=== PATIENT | female | born 1985 | race Caucasian/White ===

== ENCOUNTER 2024-07-13 22:03 | Observation (INO) ==
[2024-07-13 23:40] LABS: Basophils # (auto) 0.05 K/uL (0.00-0.20); Basophils % (auto) 0.5 %; Eosinophils % (auto) 2.1 %; Hematocrit (blood only) 33.9 % (37.0-47.0); Hemoglobin 11.3 g/dl (12.0-16.0); Immature Granulocytes # (auto) 0.04 K/uL (0.01-0.20); Immature Granulocytes % (auto) 0.4 %; Lymphocytes # (auto) 2.58 K/uL (1.20-3.40); Lymphocytes % (auto) 27.3 %; Mean Corpuscular Hgb Conc 33.3 g/dL (32.0-36.0); Mean Corpuscular Volume 89.9 fL (80.0-100.0); Mean Platelet Volume 9.6 fL (9.4-12.4); Monocytes # (auto) 0.51 K/uL (0.11-0.59); Monocytes % (auto) 5.4 %; Neutrophils # (auto) 6.06 K/uL (1.40-6.50); Neutrophils % (auto) 64.3 %; Platelet Count 398 K/uL (130-400); RDW Coefficient of Variation 12.8 % (11.5-14.5); RDW Standard Deviation 42.4 fL (36.4-46.3); Red Blood Count 3.77 M/uL (4.20-5.40); White Blood Count 9.44 K/ul (4.8-10.8)
[2024-07-13 23:42] LABS: Creatinine Urine Random 158.1 mg/dl; Protein Creatinine Ratio Urine 0.2 (0-0.2); Total Protein Urine Random 30.4 mg/dl (0-11.9)
[2024-07-13 23:58] LABS: Albumin Level 3.1 gm/dl (3.4-5.0); BUN Creatinine Ratio 12.9 (10-20); Bilirubin,Total 0.2 mg/dl (0.2-1.0); Calcium 8.3 mg/dl (8.6-10.3); Potassium 3.7 mmol/L (3.5-5.1); Total Protein 6.1 gm/dl (6.0-8.3)
--- NOTE | 2024-07-14 00:15 | History & Physical Report ---
Date of Service July 14, 2024 Assessment & Plan (1) Gestational [-induced] hypertension without significant prot einuria, complicating childbirth: Plan: patient is a 38-year-old -0-3-0 at 35 weeks and 6 days of gestation with a borderline elevated blood pressures, no proteinuria, bilateral lower extremity edema, redness, warmth, Vital signs stable afebrile, heart rate reassuring, No signs or symptoms of labor, Labs within normal limits, Abnormal lower extremities with significant edema, redness, increase in temperature, Plan to monitor, observe, bilateral Doppler ultrasound of lower extremities and consult medicine/hospitalist for further recommendations, All questions were answered. (2) Bilateral lower extremity edema: (3) Redness and swelling of lower leg: (4) Warmness of skin: History of Present Illness Primary Care Provider: Navneet Alvarez Patient is a 38-year-old -0-3-0 at 35 weeks and 6 days of gestation who was in the office yesterday afternoon when her blood pressure was borderline high and 142/88 and her urine dip showed 1+ protein she also had lower extremity edema and complained of right upper quadrant pain. She was recommended to come to labor and delivery directly from office. She went home and then decided to come tonight with her partner. She states her legs were swollen slightly initially and then got worse for the last week and then got red and hot for the last 2 days. They are tense and warm to touch. She was complaining of epigastric and right upper quadrant pain but she thought it was from tight small brown. She took her for blood for 2 days and is better now. She denies headaches, change in vision, nausea vomiting. She denies contractions, leakage of fluid, vaginal bleeding. She reports good movements. Her has been complicated by, 1) AMA, 2) transfer care in third trimester from [place], 3) Smoker, tobacco use Allergies Allergy/AdvReac Type Severity Reaction Status Date / Time Penicillins Allergy Unknown hives. Verified 07/13/24 22:28 Home Medications Medication Instructions Recorded Confirmed Type iron,carbonyl 65 mg-vitamin C 125 1 tab PO BID 07/13/24 07/13/24 History mg tablet,delayed release (Vitron-C) vits no.124-ferrous fum 1 tab PO DAILY 07/13/24 07/13/24 History 27 mg iron-folic acid 800 mcg tablet ( Vitamin) Patient History Medical History Endometriosis determined by laparoscopy Tachycardia Smoker 8-10 cigarettes per day History of opioid abuse 8 years ago.. patient states "I took anything" ADHD Endometriosis Surgical History H/O cone biopsy of cervix Social History Smoking Status: Current every day smoker Tobacco Type: Cigarettes Cigarettes Per Day: 6-10; Hx Alcohol Use: No Hx Substance Use: No Preferred Language: Nauruan Communication Ability: Effective Consulting Group Analyst Required: No Beliefs That Will Affect Care: None marital status: Single Current Living Situation: Parent Current Living Situation Comment: father Other Information That Helps Us Care for You: No Assistive Devices: None OB History 3 early spontaneous miscarriages Review of Systems as per Subjective / HPI Physical Exam Constitutional: WD/WN, vitals as above well developed, well nourished and comfortable Gastrointestinal (Abdomen): normal bowel sounds, soft, nontender, no hepatosplenomegaly ( gravid, no epigastric/right upper quadrant tenderness) Musculoskeletal: Extremities: + lower extremity abnormal to inspection ( bilateral redness, 3+ pitting edema, tightness, warm to touch) and + lower leg abnormality Genitourinary: OB Exam Monitor Tracing: + external uterine monitor used and + category I Results & Data Vital Signs (Past 12 Hours) Vital Signs Temp Pulse Resp BP 07/13/24 23:40 89 139/78 07/13/24 23:11 98 H 139/93 07/13/24 22:55 104 H 136/95 07/13/24 22:40 93 H 156/96 H 07/13/24 22:30 36.6 C 18 07/13/24 22:24 93 H 159/93 H Laboratory Results Lab Results 07/13/24 07/13/24 Range/Units 23:00 23:27 WBC 9.44 (4.8-10.8) K/ul RBC 3.77 L (4.20-5.40) M/uL Hgb 11.3 L (12.0-16.0) g/dl Hct 33.9 L (37.0-47.0) % MCV 89.9 (80.0-100.0) fL MCH 30.0 (25.0-34.0) pg MCHC 33.3 (32.0-36.0) g/dL RDW Std Deviation 42.4 (36.4-46.3) fL RDW Coeff of Corby 12.8 (11.5-14.5) % Plt Count 398 (130-400) K/uL MPV 9.6 (9.4-12.4) fL Immature Gran % (Auto) 0.4 % Neut % (Auto) 64.3 % Lymph % (Auto) 27.3 % [place] % (Auto) 5.4 % Eos % (Auto) 2.1 % Baso % (Auto) 0.5 % Neut # (Auto) 6.06 (1.40-6.50) K/uL Lymph # (Auto) 2.58 (1.20-3.40) K/uL [place] # (Auto) 0.51 (0.11-0.59) K/uL Eos # (Auto) 0.20 (0.00-0.50) K/uL Baso # (Auto) 0.05 (0.00-0.20) K/uL Immature Gran # (Auto) 0.04 (0.01-0.20) K/uL Sodium 137 (136-145) mmol/L Potassium 3.7 (3.5-5.1) mmol/L Chloride 107 (98-107) mmol/L Carbon Dioxide 23 (21-32) mmol/L Anion Gap 7 (3-11) BUN 8 (6-23) mg/dl Creatinine 0.62 (0.6-1.2) mg/dl Est Cr Clr Drug Dosing 114.0 ml/min eGFR 118.29 BUN/Creatinine Ratio 12.9 (10-20) Glucose 91 (70-99(Fasting)) mg/dl Calcium 8.3 L (8.6-10.3) mg/dl Total Bilirubin 0.2 (0.2-1.0) mg/dl AST 15 (13-39) U/L ALT 11 (7-52) U/L Alkaline Phosphatase 171 H (34-104) U/L Total Protein 6.1 (6.0-8.3) gm/dl Albumin 3.1 L (3.4-5.0) gm/dl Globulin 3.0 (2.5-4.0) gm/dl Albumin/Globulin Ratio 1.0 (0.9-2) Ur Random Creatinine 158.1 mg/dl U Random Total Protein 30.4 H (0-11.9) mg/dl Protein/Creatinin Ratio 0.2 (0-0.2)
--- NOTE | 2024-07-14 00:27 | Hospitalist Consultation ---
Date of Consultation July 14, 2024 Assessment & Plan (1) Bilateral lower extremity edema: Final Assessment and Recommendations as follows : Bilateral LE cellulitis Rule out DVT No sepsis for now ADHD, stable off maintenance medications Anemia of history of opioid abuse as per records ongoing tobacco abuse IV ceftriaxone followed by Keflex course. Consider clindamycin for MRSA coverage if no improvement. Follow LE venous Dopplers result Patient has been counseled to stop smoking. DVT prophylaxis. SCDs if no clot on venous Dopplers study. Thank you very much for this consultation. Dr. Medina will follow patient's progress. Text document was generated using [employer] voice recognition software. It may contain grammatical or spelling errors. Kindly contact undersigned for clarification of any documentation item in question. History of Present Illness Reason for Consultation: Bilateral leg swelling Requesting Physician: Dr. Ferreira Attending Physician: Tiarra Ferreira MD History of Present Illness PCP : Dr. Alvarez History obtained from patient, family, and records. Medical history significant for ADHD, endometriosis, cervical dysplasia, IBS, chronic anemia (baseline hemoglobin of 11), history of opioid abuse as per records, ongoing tobacco abuse. Patient currently at 36 weeks AOG. Last week, patient noted sudden onset bilateral leg swelling without chest pain or SOB. Subsequent redness noted over the last few days. No fever, no chills, no recollection of trauma. Patient seen at [facility] OB office today. SBP 140s. Patient directed to [facility] labor and delivery unit for evaluation. 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 Verified 07/13/24 22:28 Home Medications Medication Instructions Recorded Confirmed Type iron,carbonyl 65 mg-vitamin C 125 1 tab PO BID 07/13/24 07/13/24 History mg tablet,delayed release (Vitron-C) vits no.124-ferrous fum 1 tab PO DAILY 07/13/24 07/13/24 History 27 mg iron-folic acid 800 mcg tablet ( Vitamin) cephalexin 500 mg capsule 500 mg PO TID 7 days #21 caps 07/14/24 Rx Patient History Medical History Endometriosis determined by laparoscopy Tachycardia Smoker 8-10 cigarettes per day History of opioid abuse 8 years ago.. patient states "I took anything" ADHD Endometriosis Surgical History H/O cone biopsy of cervix Social History Smoking Status: Current every day smoker Tobacco Type: Cigarettes Cigarettes Per Day: 6-10; Hx Alcohol Use: No Hx Substance Use: No Preferred Language: Romansh Communication Ability: Effective [employer] Brm Developer Required: No Beliefs That Will Affect Care: None marital status: Single Current Living Situation: Parent Current Living Situation Comment: father Other Information That Helps Us Care for You: No Feels Safe at Home: Yes Assistive Devices: None Review of Systems Review of Systems: As per HPI, all other systems reviewed and negative Physical Exam Physical Exam: GENERAL: Comfortable, pleasant, no respiratory distress SKIN: Pallor, warm HEENT: Pale palpebral conjunctivae, no ptosis, dry buccal mucosa NECK : Supple, no tenderness CHEST : CTA, no tenderness HEART : RRR, no obvious murmurs ABDOMEN: Globular abdomen, nontender EXTREMITIES : Bilateral LE erythema with minimal, no other conspicuous deformities noted NEUROLOGIC : Coherent, no facial asymmetry, no other gross focality Results & Data Results & Data Vital Signs (Past 12 Hours) Vital Signs Temp Pulse Resp BP 07/13/24 23:40 89 139/78 07/13/24 23:11 98 H 139/93 07/13/24 22:55 104 H 136/95 07/13/24 22:40 93 H 156/96 H 07/13/24 22:30 36.6 C 18 07/13/24 22:24 93 H 159/93 H Laboratory Results Laboratory Results WBC 9.44 K/ul (4.8-10.8) 07/13/24 23:27 RBC 3.77 M/uL (4.20-5.40) L 07/13/24 23:27 Hgb 11.3 g/dl (12.0-16.0) L 07/13/24 23:27 Hct 33.9 % (37.0-47.0) L 07/13/24: MCV 89.9 fL (80.0-100.0) 07/13/24: MCH 30.0 pg (25.0-34.0) 07/13/24: MCHC 33.3 g/dL (32.0-36.0) 07/13/24: RDW Std Deviation 42.4 fL (36.4-46.3) 07/13/24 RDW Coeff of Corby 12.8 % (11.5-14.5) 07/13/24: Plt Count 398 K/uL (130-400) 07/13/24: MPV 9.6 fL (9.4-12.4) 07/13/24: Immature Gran % (Auto) 0.4 % 07/13/24: Neut % (Auto) 64.3 % 07/13/24: Lymph % (Auto) 27.3 % 07/13/24: [place] % (Auto) 5.4 % 07/13/24: Eos % (Auto) 2.1 % 07/13/24: Baso % (Auto) 0.5 % 07/13/24 Neut # (Auto) 6.06 K/uL (1.40-6.50) 07/13/24: Lymph # (Auto) 2.58 K/uL (1.20-3.40) 07/13/24: [place] # (Auto) 0.51 K/uL (0.11-0.59) 07/13/24: Eos # (Auto) 0.20 K/uL (0.00-0.50) 07/13/24: Baso # (Auto) 0.05 K/uL (0.00-0.20) 07/13/24: Immature Gran # (Auto) 0.04 K/uL (0.01-0.20) 07/13/24 23: Sodium 137 mmol/L (136-145) 07/13/24: Potassium 3.7 mmol/L (3.5-5.1) 07/13/24: Chloride 107 mmol/L (98-107) 07/13/24 23:27 Carbon Dioxide 23 mmol/L (21-32) 07/13/24 23:27 Anion Gap 7 (3-11) 07/13/24 23:27 BUN 8 mg/dl (6-23) 07/13/24 23:27 Creatinine 0.62 mg/dl (0.6-1.2) 07/13/24 23:27 Est Cr Clr Drug Dosing 114.0 ml/min 07/13/24 23:27 eGFR 118.29 07/13/24 23:27 BUN/Creatinine Ratio 12.9 (10-20) 07/13/24 23:27 Glucose 91 mg/dl (70-99(Fasting)) 07/13/24 23: Calcium 8.3 mg/dl (8.6-10.3) L 07/13/24 23: Total Bilirubin 0.2 mg/dl (0.2-1.0) 07/13/24 23:27 AST 15 U/L (13-39) 07/13/24 23:27 ALT 11 U/L (7-52) 07/13/24 23:27 Alkaline Phosphatase 171 U/L (34-104) H 07/13/24 23:27 Total Protein 6.1 gm/dl (6.0-8.3) 07/13/24 23:27 Albumin 3.1 gm/dl (3.4-5.0) L 07/13/24 23:27 Globulin 3.0 gm/dl (2.5-4.0) 07/13/24 23:27 Albumin/Globulin Ratio 1.0 (0.9-2) 07/13/24 23:27 Ur Random Creatinine 158.1 mg/dl 07/13/24 23:00 U Random Total Protein 30.4 mg/dl (0-11.9) H 07/13/24 23:00 Protein/Creatinin Ratio 0.2 (0-0.2) 07/13/24 23:00 Diagnostic Findings Chest x-ray as per my interpretation atelectasis
[2024-07-14 00:51] LABS: Magnesium 1.8 mg/dl (1.7-2.4)
[2024-07-14] MEDS ORDERED: ONDANSETRON 4 MG OD TAB PO PRN (01:48)
--- NOTE | 2024-07-14 02:09 | Obstetrical Progress Note ---
Date of Service July 14, 2024 Subjective Patient is back from ultrasound. Report is pending but signals collection technician indicated that there is no DVT bilaterally. I discussed with hospitalist Dr. Flowers who recommended IV Rocephin for bilateral lower extremity cellulitis. Plan to start 2 g per 24 hours for 2 doses 1 today and 1 tomorrow morning and then switch to oral Keflex. I explained the findings and the plan to the patient and she understands and agrees with plan. She denies abdominal pain, contractions, leakage of fluid, vaginal bleeding. She reports good movements. heart rate had been with reactive NST. patient will be on regular diet and admitted to OB service with hospitalist consulted, All questions were answered. Results & Data Vital Signs (Past 12 Hours) Vital Signs Temp Pulse Resp BP 07/14/24 02:05 18 07/14/24 02:05 36.5 C 18 07/14/24 01:38 82 18 137/86 07/13/24 23:40 89 139/78 07/13/24 23:11 98 H 139/93 07/13/24 22:55 104 H 136/95 07/13/24 22:40 93 H 156/96 H 07/13/24 22:30 36.6 C 18 07/13/24 22:24 93 H 159/93 H
--- OUTSIDE RECORDS SUMMARY | 2024-07-14 02:54 | External Medical Summary ---
Author Name Unknown Address Unknown Organization [id number]:LABORATORY [facility] - [address] [place] [address] [place] [address] Laboratory Report Ordering Provider Test Date Status KEVIN JEFFERY 06/25/2024 15:35:23 Final Observation Date Value Abnormality Reference (Units ) Status BUN 06/25/2024 15:35:23 6 6-20 (mg/dL) Final Creatinine 06/25/2024 15:35:23 0.6 0.5-1.0 (mg/dL) Final Glomerular filtration rate/1.73 sq M.predicted [Volume Rate/Area] in Serum, Plasma or Blood by Creatinine-based formula (CKD-EPI) 06/25/2024 15:35:23 >90 >=60 (mL/min) Final eGFR is calculated based on the CKD-EPI 2020 equation. Sodium 06/25/2024 15:35:23 137 135-146 (m mol/L) Final Potassium 06/25/2024 15:35:23 3.8 3.5-5.1 (m mol/L) Final Cl 06/25/2024 15:35:23 104 98-107 (mm ol/L) Final CO2 06/25/2024 15:35:23 23 22-32 (mmo l/L) Final Anion gap 06/25/2024 15:35:23 10 7-15 (mmol /L) Final Glucose 06/25/2024 15:35:23 78 70-120 (mg /dL) Final Albumin 06/25/2024 15:35:23 3.2 Below low normal 3.8 -5.0 (g/dL) Final AST (Aspartate aminotransferase) 06/25/2024 15:35:23 17 10-35 (U/L) Fin al Alk Phos 06/25/2024 15:35:23 151 Above high normal 35 -130 (U/L) Final Bilirubin, Total 06/25/2024 15:35:23 <0.2 <=1 .2 (mg/dL) Final Calcium 06/25/2024 15:35:23 8.8 8.4-10.2 ( mg/dL) Final Protein 06/25/2024 15:35:23 5.3 Below low normal 6.0 -8.3 (g/dL) Final ALT (Alanine aminotransferase) 06/25/2024 15:35:23 13 10-35 (U/L) Claude morris Performing Location [facility] - [address] [facility] [id number]
--- OUTSIDE RECORDS SUMMARY | 2024-07-14 02:54 | External Medical Summary | Summary of Care ---
Author Name Unknown Organization [facility] Address [address] [place] [address] Phone [phone] Care Team Providers Care Paid Internship Name Role Phone Navneet Alvarez Israel WELSH Primary Care Provider [phone] Reason for Visit * Reason Onset Date Comments Appointment 06/08/2024 Encounter Details Date Type Department Care Team (Late st Contact Info) Description 06/08/2024 Telephone Gynecology/Obstetrics [facility] [address] [place] [address] Chrissy Wei CRNP [address] [place] [address] Appointment Allergies Active Allergy Reactions Criticality Noted Date Comments Penicillins 11/29/2003 hives documented as of this encounter (statuses as of 06/18/2024) Medications Medication Sig Dispensed Refills Start Date End Date Status 28-0.8 MG Oral Tablet Take by mouth. Active Amphetamine-Dextroamp het ER 25 MG Oral Capsule Extended Release 24 Hour (Adderall XR) Take 1 Capsule by mouth in the morning. Active Amphetamine-Dextroamp hetamine 10 MG Oral Tablet (Adderall) TAKE ONE TABLET BY MOUTH AT NOON 04/06/2024 Active Blood Pressure Cuff For checking blood pressure. 1 Each 06/09/2024 Active documented as of this encounter (statuses as of 06/18/2024) Active Problems Problem Noted Date Diagnosed Date Antepartum anemia complicating 024 Overview: Hgb 11.2, Ferritin 13 at 30 weeks B12 <150 PO Iron BID, and daily B12 started Recheck 4 weeks High-risk 06/08/2024 Antepartum multigravida of advanced maternal age 0906/05/2024 History of opioid abuse 06/05/2024 Tobacco smoking affecting , antepartum 06/05/2024 Attention deficit hyperactivity disorder (ADHD) 06/05/2024 Tachycardia 06/05/2024 Overview: EKG normal sinus at 30 weeks CONCLUSIONS: Normal sinus rhythm Normal ECG No previous ECGs available Ventricular Rate: 99 Atrial Rate: 99 [place] Interval: 156 QRS Duration: 72 QT/QTc: 350/449 ms P-R-T [place]: 64 : 78 : 50 degrees LLQ abdominal pain 08/22/2012 Endometriosis 07/01/2012 Irritable bowel syndrome Estimated Date of Delivery Comme nts Yes 08/12/2024 Based on last me nstrual period of 11/06/2023 documented as of this encounter (statuses as of 06/18/2024) Immunizations Name Administration Dates Next Due TDAP (age 10 and older)(Boostrix) 10/28/2012 TDAP, Age 7 and older, IM (Adacel) 12/23/2020 documented as of this encounter Social History Tobacco Use Types Packs/Day Years Used Date Smoking Tobacco: Every Day Cigarettes Smokeless Tobacco: Never Comments:6-7 cigs/day Alcohol Use Standard Drinks/Week Comments Not Currently 0 (1 standard drink = 0.6 oz pur e alcohol) social AUDIT-C Answer Date Recorded Frequency of Alcohol Consumption Never 10/22/2018 Average Number of Drinks Not on file 019 Frequency of Binge Drinking Not on file 09/25 PHQ-2 Answer Date Recorded PHQ-2 Score 0 10/31/2018 Hunger Vital Sign Answer Date Recorded Within the past 12 months, y ou worried that your food would run out before you got the money to buy more. Never true 05/01/20 24 Within the past 12 months, t he food you bought just didn't last and you didn't have money to get more. Never true 05/01/2024 Childcare Answer Date Recorded Do you feel overwhelmed with taking care of a child, family member or friend? No 05/01/2024 Does your family need help f inding childcare? (Household - for ages 0-17 years) Not on file 05/01/2024 Clothing Answer Date Recorded Have you been unable to get clothing when it was really needed? No 05/01/2024 Is your family able to get c lothes or diapers when needed? (Household - for ages 0-17 years) Not on file 05/01/2024 Personal Safety Answer Date Recorded Do you feel unsafe or have concerns for your saf ety? No 05/01/2024 Do you have concerns for you r family's safety? (Household - for ages 0-17 years) Not on file 05/01/2024 Utilities Answer Date Recorded Do you have trouble paying y our heating, water, or electric bill? No 05/01/2024 Is your family able to pay t he heat, water, or electric bill? (Household - for ages 0-17 years) Not on file 05/01/2024 Does your family have access to good internet? (Household - for ages 0-17 years) Not on file 05/01/2024 Employment Status Answer Date Recorded Are you unemployed or without regular income? No 05/01/2024 Does the household have a re gular source of income? (Household - for ages 0-17 years) Not on file 05/01/2024 Social Connections Answer Date Recorded How often do you feel lonely or isolated from th ose around you? Never 05/01/2024 Financial Resource Strain Answer Date R ecorded Do you have any trouble payi ng for your medications, or do you think you might in the future? No 05/01/2024 Does your family have troubl e paying for medicine? (Household - for ages 0-17 years) Not on file 05/01/2024 Transportation Needs Answer Date Record ed Do you have trouble getting a ride to medical visits or work? (Adult - for ages 18 years and over) Not on file 05/01/2024 Does your family have a hard time getting a ride to doctors visits? (Household - for ages 0-17 years) Not on file 05/01/2024 Has lack of transportation k ept you from medical appointments, meetings, work, or from getting things needed for daily living? Check all that apply. No 05/01/2024 Do you (or your family) have trouble finding or paying for a ride (transportation)? (Household - for ages 0-17 years) Not on file 05/01/2024 Housing Stability Answer Date Recorded Do you currently live in a s helter or have no steady place to sleep at night? No 05/01/2024 Do you think you are at risk of becoming homeless? (Adult - for ages 18 years and over) Not on file 05/01/2024 Does your family worry about paying for your home or becoming homeless? (Household - for ages 0-17 years) Not on file 0 05/01/2024 Are you homeless or worried that you might be in the future? No 05/01/2024 Are you (or your family) archie eless or worried that you might be in the future? (Household - for ages 0-17 years) Not on file Food Insecurity Answer Date Recorded Do you need food for this week? No 05/01/2024 Are you able to get enough f ood for your family? (Household - for ages 0-17 years) Not on file 05/01/2024 Does your family need food t his week? (Household - for ages 0-17 years) Not on file 05/01/2024 Do you always have enough fo od for your family? (Household - for ages 0-17 years) Not on file 05/01/2024 Estimated Date of Delivery Comme nts Yes 08/12/2024 Based on last me nstrual period of 11/06/2023 Sex and Gender Information Value Date Recorded Sex Assigned at Female 04/15/2024 2:07 PM EDT Gender Identity Female 04/15/2024 2:07 PM EDT Sexual Orientation Straight 05/01/2024 9: 50 PM EDT Job Start Date Occupation Industry Not on file Not on file Not on file documented as of this encounter Miscellaneous Notes * Telephone Encounter - Ashley Polo LPN - 06/18/2024 3:41 PM EDT Pt calling back and advised she needs to really try to come to her next ob appt on Saturday. No appointments to offer for tomorrow. Pt verbalized understanding * Telephone Encounter - Yudi Fleming LPN - 06/17/2024 9:51 AM EDT Called pt lm to return call. Myg sent * Telephone Encounter - Yudi Fleming LPN - 06/12/2024 8:33 AM EDT Called pt lm to return call. Triage number was provided * Telephone Encounter - Dayana Rivera OSA - 06/10/2024 11:30 AM EDT LMOM to call to schedule for this week * Telephone Encounter - Sonia Mcgrath RN - 06/10/2024 11:12 AM EDT Please help r/s ALEKSANDRA and BP check * Telephone Encounter - Shy Redding PA-C - 06/10/2024 11:08 AM EDT Should be seen back for BP check as previously advised. Please call and schedule back. Would recommend ALEKSANDRA/BP check. Shy Redding PA-C * Telephone Encounter - Ashley Polo LPN - 06/09/2024 4:20 PM EDT Sending as FYI- Pt was a no show today for BP check. MyG sent. * Addendum Note - Shy Redding PA-C - 06/09/2024 1:57 PM EDTAddended by: SHY REDDING on: 06/09/2024 01:57 PM Modules accepted: Orders * Telephone Encounter - Shy Redding PA-C - 06/09/2024 1:54 PM EDT Would recommend she keep appointment for BP check today since she missed appointment yesterday. I sent BP cuff in for her to check at home. Would need to call if any BP = or > 140/90, or any persistent will, RUQ pain, epigastric pain. ER if any chest pain or SOB. Of note, pt needs ALEKSANDRA not currently scheduled. * Telephone Encounter - Dayan Jensen LPN - 06/08/2024 3:46 PM EDT No show for ALEKSANDRA/BP check today. TC to patient, rescheduled for tomorrow afternoon at . States sheis feeling fine. Pt also states she can check her BP at home if you would like. She does not have a bp cuff but would be agreeable if you would want to send one to her pharmacy for her to check at home. documented in this encounter Plan of Treatment Upcoming Encounters Date Type Department Care Team (Late st Contact Info) Description 06/22/2024 11:45 AM EDT Office Visit Gynecology/Obstetrics [facility] [address] [place] [address] Shy Redding PA-C [address] [place] [id number] Health Maintenance Due Date Last Done Comments Pneumococcal Vaccine: Pediatrics (0 to 5 Years) and At-Risk Patients (6 to 64 Years) (1 of 2 - PCV) 1993 Hepatitis B Vaccine (1 of 3 - 19+ 3-dose series) 2006 HPV/Co-Test 2017 Depression Screening 10/31/2019 10/31/2018 Cervical Cancer Screening 11/09/2022 Pap Smear 11/09/2022 11/09/2019, 10/24, 10/31/2018, Additional history exists COVID-19 Vaccine ( - 2023- season) 2024 Influenza Vaccine (FLU shot) (#1) 2024 DTap/Tdap Vaccines (3 - Td or Tdap) 12/23/2030 12/23/2020, 10/28/2012 HPV (Gardasil) Vaccine Aged Out No lo nger eligible based on patient's age to complete this topic MENINGOCOCCAL (MENACTRA/MENVEO) Aged Out No longer eligible based on patient's age to complete this topic documented as of this encounter Medical Devices Not on filedocumented as of this encounter Care Teams Paid Internship Relationship Specialty Start Date End Date [place] [address] PCP - General Family Medicine 07/03/21 documented as of this encounter
--- OUTSIDE RECORDS SUMMARY | 2024-07-14 02:54 | External Medical Summary | Summary of Care ---
Author Name Unknown Organization [facility] Address [address] [place] [address] Phone [phone] Care Team Providers Care Cardroom Hand Name Role Phone Navneet Alvarez Israel WELSH Primary Care Provider [phone] Reason for Visit * Reason Onset Date Comments Appointment 06/08/2024 Encounter Details Date Type Department Care Team (Late st Contact Info) Description 06/08/2024 Telephone Gynecology/Obstetrics [facility] [address] [place] [address] Chrissy Wei CRNP [address] [place] [address] Appointment Allergies Active Allergy Reactions Criticality Noted Date Comments Penicillins 11/29/2003 hives documented as of this encounter (statuses as of 06/10/2024) Medications Medication Sig Dispensed Refills Start Date [...] as of this encounter (statuses as of 06/10/2024) Active Problems Problem Noted Date Diagnosed Date Antepartum anemia complicating 024 Overview: Hgb 11.2, Ferritin 13 at 30 weeks PO Iron BID Recheck 4 weeks High-risk 06/08/2024 Antepartum multigravida of advanced maternal age 0906/05/2024 History of opioid abuse 06/05/2024 Tobacco smoking affecting , antepartum 06/05/2024 Attention deficit hyperactivity disorder (ADHD) 06/05/2024 Tachycardia 06/05/2024 Overview: EKG normal sinus at 30 weeks CONCLUSIONS: Normal sinus rhythm Normal ECG No previous ECGs available Ventricular Rate: 99 Atrial Rate: 99 [place] Interval: 156 QRS Duration: 72 QT/QTc: 350/449 ms P-R-T [place]: 64 : 78 : 50 degrees LLQ abdominal pain 08/22/2012 Endometriosis 07/01/2012 Irritable bowel syndrome Estimated Date of Delivery Comme nts Yes 08/12/2024 Based on last me nstrual period of 11/06/2023 documented as of this encounter (statuses as of 06/10/2024) Immunizations Name Administration Dates Next Due TDAP [...] encounter Miscellaneous Notes * Telephone Encounter - Sonia Mcgrath RN [...] [facility] [address] [place] [address] Shy Redding PA-C [address] [place] [address] Health Maintenance Due Date Last Done Comments Pneumococcal Vaccine: Pediatrics (0 to 5 Years) and At-Risk Patients (6 to 64 Years) (1 of 2 - PCV) 1993 Hepatitis B Vaccine (1 of 3 - 19+ 3-dose series) 2006 HPV/Co-Test 2017 Depression Screening 10/31/2019 10/31/2018 Cervical Cancer Screening 11/09/2022 Pap Smear 11/09/2022 11/09/2019, 10/24, 10/31/2018, Additional history exists COVID-19 Vaccine ( season) 2024 Influenza Vaccine (FLU shot) (#1) [...] filedocumented as of this encounter Care Teams Cardroom Hand Relationship Specialty Start Date End Date Navneet Alvarez OD [address] [place] [address] PCP - General Family Medicine 07/03/21 documented as of this encounter
--- OUTSIDE RECORDS SUMMARY | 2024-07-14 02:54 | External Medical Summary | Summary of Care ---
Author Name Unknown Organization [facility] Address [address] [place] [address] Phone [phone] Care Team Providers Care Manager Regulatory Name Role Phone Navneet Alvarez Israel WELSH Primary Care Provider [phone] Reason for Visit * Reason Comments Return Visit Encounter Details Date Type Department Care Team (Late st Contact Info) Description 06/25/2024 2:15 PM EDT Office Visit Gynecology/Obstetric s [facility] [address] [place] [address] Anh Cisneros CRNP [address] [place] [address] High-risk in third trimester*; Endometriosis; Antepartum multigravida of advanced maternal age; History of opioid abuse (HCC); Tobacco smoking affecting , antepartum; Tachycardia; Antepartum anemia complicating ; Need for prophylactic vaccination with combined cjbkywelth-gljdrqh-ds rtussis (DTP) vaccine; Need for RSV vaccination Allergies Active Allergy Reactions Criticality Noted Date Comments Penicillins 11/29/2003 hives documented as of this encounter (statuses as of 06/25/2024) Medications Medication Sig Dispensed Refills Start Date End Date Status 28-0.8 MG Oral Tablet Take by mouth. Active Amphetamine-Dextroam phet ER 25 MG Oral Capsule Extended Release 24 Hour (Adderall XR) Take 1 Capsule by mouth in the morning. Active Amphetamine-Dextroam phetamine 10 MG Oral Tablet (Adderall) TAKE ONE TABLET BY MOUTH AT NOON 04/06/2024 Active Blood Pressure Cuff For checking blood pressure. 1 Each 06/09/2024 Active Iron-Vitamin C 65-125 MG Oral Tablet (Vitron C) Take 1 Tablet by mouth in the morning and 1 Tablet before bedtime. 60 Tablet 3 06/09/2024 Active Vitamin B-12 1000 MCG Oral Tablet (Cyanocobalamin) Take 1 Tablet by mouth in the morning. 30 Tablet 3 06/10/2024 Active documented as of this encounter (statuses as of 06/25/2024) Active Problems Problem Noted Date Diagnosed Date [...] available Ventricular Rate: 99 Atrial Rate: 99 [place] Interval: 156 QRS Duration: 72 QT/QTc: 350/449 ms P-R-T [place]: 64 : 78 : 50 degrees LLQ abdominal pain 08/22/2012 Endometriosis 07/01/2012 Irritable bowel syndrome Estimated Date of Delivery Comme nts Yes 08/12/2024 Based on last me nstrual period of 11/06/2023 documented as of this encounter (statuses as of 06/25/2024) Immunizations Name Administration Dates Next Due RSV Vac., Bivalent, Perfusion F, Pf,0.5 Ml (Abry svo) 06/25/2024 TDAP (age 10 and older)(Boostrix) 10/28/2012 TDAP, Age 7 and older, IM (Adacel) 06/25/2024, documented as of this encounter Social History [...] on file documented as of this encounter Last Filed Vital Signs Vital Sign Reading Time Taken Comments Blood Pressure 140/88 06/25/2024 2:18 PM EDT rep eat 124/84 Pulse - - Temperature - - Respiratory Rate - - Oxygen Saturation - - Inhaled Oxygen Concentration - - Weight 62.6 kg (138 lb) 06/25/2024 2:18 PM EDT Height 157.5 cm (5' 2") 06/25/2024 2:18 PM EDT Body Mass Index 25.24 06/25/2024 2:18 PM EDT documented in this encounter Progress Notes * Anh Cisneros CRNP - 06/25/2024 3:01 PM EDT 33w1d Forgot to bring blood pressure readings to visit today. States they are high at times, but did not recall any numbers. She is having pain across her upper abdomen, comes and goes. Agreeable to labs today. Has not done glucola, but will do today with other labs. BP elevated upon arrival, but improved on recheck. No proteinuria. She is agreeable to weekly visits. Has had very limited care thus far, but states she spoke with her boss and she is going to be able to make visits work with her schedule. TDAP, RSV today. BRITTNEY Silva documented in this encounter Nursing Notes * Dayan Jensen LPN - 06/25/2024 3:11 PM EDT Patient here for tdap injection. Patient doing well no complaints. Injection given IM as ordered. Patient tolerated well. Patient to follow up as directed. Patient instructed to call if any complications. Patient verbalized understanding of instructions given and her follow up appt for ALEKSANDRA Injection site: Right Deltoid Medication Source: Dispensed stock medication Patient here for RSV injection. Patient doing well no complaints. Injection given IM as ordered. Patient tolerated well. Patient to follow up as directed. Patient instructed to call if any complications. Patient verbalized understanding of instructions given and her follow up appt for ALEKSANDRA Injection site: Left Deltoid Medication Source: Dispensed stock medication * Dayan Jensen LPN - 06/25/2024 2:47 PM EDT 33w1d BP readings at home "all over the place", reports was in the 150 range last night. Intermittent right sided "burning". documented in this encounter Plan of Treatment Upcoming Encounters Date Type Department Care Team (Late st Contact Info) Description 06/25/2024 3:50 PM EDT [facility] [address] [place] [phone] [facility] [address] [place] [address] Arrived 07/06/2024 10:15 AM EDT [facility] [address] [place] [address] Anh Cisneros CRNP [address] [place] [address] 07/13/2024 1:45 PM EDT Office Visit Gynecology/Obstetrics [facility] [address] [place] [address] Chrissy Wei CRNP [address] [place] [address] 07/20/2024 2:15 PM EDT Office Visit Gynecology/Obstetrics [facility] [address] [place] [address] Anh Cisneros CRNP [address] [place] [address] 07/27/2024 1:30 PM EST Office Visit Gynecology/Obstetrics [facility] [address] [place] [address] Chrissy Wei CRNP [address] [place] [address] 08/03/2024 3:00 PM EST Office Visit Gynecology/Obstetrics [facility] [address] [place] [address] Salvador Holcomb MD [address] [place] [address] Pending Results Name Type Priority Associated Diagnoses Date /Time COMPREHENSIVE METABOLIC PANEL Lab Routine High-risk in third trimester 06/25/2024 3:35 PM EDT CBC Lab Routine High-risk in third trimester 06/25/2024 3:35 PM EDT Health Maintenance Due Date Last Done Comments [...] 2024 Influenza Vaccine (FLU shot) (#1) 2024 Diabetes Screening 06/05/2027 06/05/2024, 0 10/27/2018, 01/23/2016, Additional history exists DTap/Tdap Vaccines (4 - Td or Tdap) 06/25/2034 06/25/2024, 12/23/2020, 10/28/2012 HPV (Gardasil) Vaccine Aged Out No lo nger eligible based on patient's age to complete this topic MENINGOCOCCAL (MENACTRA/MENVEO) Aged Out No longer eligible based on patient's age to complete this topic documented as of this encounter Medical Devices Not on filedocumented as of this encounter Procedures Procedure Name Priority Date/Time Associated Diagnosis Comments URINALYSIS, POINT OF CARE (ENTER/EDIT) Routine 06/25/2024 High-risk in third trimester documented in this encounter Results * URINALYSIS, POINT OF CARE (ENTER/EDIT) (06/25/2024) Color, Urine Yellow Yellow or Light Yellow Clarity, Urine Slightly Cloudy Clear Glucose, Urine Negative Negative mg/dL Bilirubin, Urine Negative Negative Ketone, Urine Trace Negative mg/dL Specific [place], Urine 1.030 1.003 - 1.030 Blood, Urine Negative Negative pH, Urine 7.0 5.0 - 7.5 units Protein, Urine Negative Negative mg/dL Urobilinogen, Urine 0.2 0.2 - 1.0 mg/dL Nitrite, Urine Negative Negative Esterase, Urine Negative Negative Urine 06/25/2024 Anh [facility] POINT OF CARE TE ENTER/EDIT ORDERABLES documented in this encounter Visit Diagnoses Diagnosis High-risk in third trimester- Primary Endometriosis Endometriosis, site unspecified Antepartum multigravida of advanced maternal age History of opioid abuse (HCC) Opioid abuse, in remission Tobacco smoking affecting , antepartum Tachycardia Tachycardia, unspecified Antepartum anemia complicating Anemia, antepartum Need for prophylactic vaccination with combined irvsrpqiaf-jcrsxgs-ngttflqaz (DTP) vaccine Need for RSV vaccination Need for prophylactic vaccination and inoculation against respiratory syncytial virus documented in this encounter Care Teams Manager Regulatory Relationship Specialty Start Date End Date Navneet Alvarez OD [address] [facility] [place] [address] PCP - General Family Medicine 07/03/21 documented as of this encounter
--- OUTSIDE RECORDS SUMMARY | 2024-07-14 02:54 | External Medical Summary | Summary of Care ---
Author Name Unknown Organization [facility] Address [address] [place] [address] Phone [phone] Care Team Providers Care Training Systems Officer Name Role Phone Navneet Alvarez Israel WELSH Primary Care Provider [phone] Reason for Visit * Reason Onset Date Comments Appointment 06/08/2024 Encounter Details Date Type Department Care Team (Late st Contact Info) Description 06/08/2024 Telephone Gynecology/Obstetrics [facility] [address] [place] [address] Chrissy Wei CRNP [address] [place] [address] Appointment Allergies Active Allergy Reactions Criticality Noted Date Comments Penicillins 11/29/2003 hives documented as of this encounter (statuses as of 06/17/2024) Medications Medication Sig Dispensed Refills Start Date [...] as of this encounter (statuses as of 06/17/2024) Active Problems Problem Noted Date Diagnosed Date [...] available Ventricular Rate: 99 Atrial Rate: 99 [place] Interval: 156 QRS Duration: 72 QT/QTc: 350/449 ms P-R-T [place]: 64 : 78 : 50 degrees LLQ abdominal pain 08/22/2012 Endometriosis 07/01/2012 Irritable bowel syndrome Estimated Date of Delivery Comme nts Yes 08/12/2024 Based on last me nstrual period of 11/06/2023 documented as of this encounter (statuses as of 06/17/2024) Immunizations Name Administration Dates Next Due TDAP [...] encounter Miscellaneous Notes * Telephone Encounter - Yudi Fleming LPN [...] [facility] [address] [place] [address] Shy Redding PA-C [address] [place] [address] Health Maintenance Due Date Last Done Comments [...] filedocumented as of this encounter Care Teams Training Systems Officer Relationship Specialty Start Date End Date Navneet Alvarez OD [address] [facility] [place] [address] PCP - General Family Medicine 07/03/21 documented as of this encounter
--- OUTSIDE RECORDS SUMMARY | 2024-07-14 02:54 | External Medical Summary | Summary of Care ---
Author Name Unknown Organization [facility] Address [address] [place] [address] Phone [phone] Care Team Providers Care Drafter Cartographic Name Role Phone Navneet Alvarez Israel WELSH Primary Care Provider [phone] Reason for Visit * Reason Onset Date Comments Appointment 06/08/2024 Encounter Details Date Type Department Care Team (Late st Contact Info) Description 06/08/2024 Telephone Gynecology/Obstetrics [facility] [address] [place] [address] Chrissy Wei CRNP [address] [place] [address] Appointment Allergies Active Allergy Reactions Criticality Noted Date Comments Penicillins 11/29/2003 hives documented as of this encounter (statuses as of 06/12/2024) Medications Medication Sig Dispensed Refills Start Date [...] as of this encounter (statuses as of 06/12/2024) Active Problems Problem Noted Date Diagnosed Date [...] available Ventricular Rate: 99 Atrial Rate: 99 [place] Interval: 156 QRS Duration: 72 QT/QTc: 350/449 ms P-R-T [place]: 64 : 78 : 50 degrees LLQ abdominal pain 08/22/2012 Endometriosis 07/01/2012 Irritable bowel syndrome Estimated Date of Delivery Comme nts Yes 08/12/2024 Based on last me nstrual period of 11/06/2023 documented as of this encounter (statuses as of 06/12/2024) Immunizations Name Administration Dates Next Due TDAP [...] Office Visit Gynecology/Obstetrics [facility] [address] [place] [address] Shy Redding PA-C [address] [place] [address] Health Maintenance Due Date Last Done Comments Pneumococcal Vaccine: Pediatrics (0 to 5 Years) and At-Risk Patients (6 to 64 Years) (1 of 2 - PCV) 1993 Hepatitis B Vaccine (1 of 3 - 19+ 3-dose series) 2006 HPV/Co-Test 2017 Depression Screening 10/31/2019 10/31/2018 Cervical Cancer Screening 11/09/2022 Pap Smear 11/09/2022 11/09/2019, 10/24, 10/31/2018, Additional history exists COVID-19 Vaccine ( - season) 2024 Influenza Vaccine (FLU shot) (#1) [...] filedocumented as of this encounter Care Teams Drafter Cartographic Relationship Specialty Start Date End Date Navneet Alvarez OD [address] [place] [place] [address] PCP - General Family Medicine 07/03/21 documented as of this encounter
--- OUTSIDE RECORDS SUMMARY | 2024-07-14 02:54 | External Medical Summary | Summary of Care ---
Author Name Unknown Organization [facility] Address [address] [place] [address] Phone [phone] Care Team Providers Care Recycling Technician Name Role Phone Navneet Alvarez Israel WELSH Primary Care Provider [phone] Reason for Visit * Reason Onset Date Comments Appointment 06/08/2024 Encounter Details Date Type Department Care Team (Late st Contact Info) Description 06/08/2024 Telephone Gynecology/Obstetrics [facility] [address] [place] [address] Chrissy Wei CRNP [address] [place] [address] Appointment Allergies Active Allergy Reactions Criticality Noted [...] available Ventricular Rate: 99 Atrial Rate: 99 [place] Interval: 156 QRS Duration: 72 QT/QTc: 350/449 ms P-R-T [place]: 64 : 78 : 50 degrees LLQ [...] encounter Miscellaneous Notes * Telephone Encounter - Shy Redding PA-C [...] Gynecology/Obstetrics [facility] [address] [place] [address] Shy Redding PA-C [address] [place] [address] Health Maintenance Due Date Last Done Comments [...] filedocumented as of this encounter Care Teams Recycling Technician Relationship Specialty Start Date End Date Navneet Alvarez OD [address] [facility] [place] [address] PCP - General Family Medicine 07/03/21 documented as of this encounter
--- OUTSIDE RECORDS SUMMARY | 2024-07-14 02:54 | External Medical Summary ---
Author Name Unknown Address Unknown Organization [facility] [address] [place] [address] Laboratory Report Ordering Provider Test Date Status KEVIN JEFFERY 06/25/2024 15:35:23 Final Observation Date Value Abnormality Reference (Units ) Status WBC, Total 06/25/2024 15:35:23 11.90 Above high normal 4 .00-10.80 (K/uL) Final RBC 06/25/2024 15:35:23 3.49 3.85-5.15 (M/uL) Final Hemoglobin 06/25/2024 15:35:23 10.7 Below low normal 12 .0-15.3 (g/dL) Final HCT 06/25/2024 15:35:23 32.2 Below low normal 36. 0-45.2 (%) Final MCV 06/25/2024 15:35:23 92.3 81.5-97.5 (fL) Final MCH 06/25/2024 15:35:23 30.7 27.0-34.0 (pg) Final MCHC 06/25/2024 15:35:23 33.2 32.0-36.0 (g/dL) Final RDW 06/25/2024 15:35:23 13.4 11.5-15.5 (%) Final Platelets 06/25/2024 15:35:23 416 Above high normal 14 0-400 (K/uL) Final MPV 06/25/2024 15:35:23 9.2 6.6-11.1 ( fL) Final [facility] Location [facility] [address] [place] [address]
--- OUTSIDE RECORDS SUMMARY | 2024-07-14 02:54 | External Medical Summary | Summary of Care ---
Author Name Unknown Organization [facility] Address [address] [place] [address] Phone [phone] Care Team Providers Care Laborer Electroplating Name Role Phone ScooterNavneet wiggins Israel WELSH Primary Care Provider [phone] Reason for Visit * Reason Onset Date Comments Appointment 06/22/2024 Encounter Details Date Type Department Care Team (Late st Contact Info) Description 06/22/2024 Telephone Gynecology/Obstetrics [facility] [address] [place] [address] Haley Redding PA-C [address] [place] [address] Appointment Allergies Active Allergy Reactions Criticality Noted Date Comments Penicillins 11/29/2003 hives documented as of this encounter (statuses as of 06/23/2024) Medications Medication Sig Dispensed Refills Start Date [...] as of this encounter (statuses as of 06/23/2024) Active Problems Problem Noted Date Diagnosed Date [...] available Ventricular Rate: 99 Atrial Rate: 99 [place] Interval: 156 QRS Duration: 72 QT/QTc: 350/449 ms P-R-T [place]: 64 : 78 : 50 degrees LLQ abdominal pain 08/22/2012 Endometriosis 07/01/2012 Irritable bowel syndrome Estimated Date of Delivery Comme nts Yes 08/12/2024 Based on last me nstrual period of 11/06/2023 documented as of this encounter (statuses as of 06/23/2024) Immunizations Name Administration Dates Next Due TDAP [...] encounter Miscellaneous Notes * Telephone Encounter - Dayan Jensen LPN - 06/22/2024 2:31 PM EDT No show for ALEKSANDRA. documented in this encounter Plan of Treatment Upcoming Encounters Date Type Department Care Team (Late st Contact Info) Description 06/25/2024 2:15 PM EDT Office Visit Gynecology/Obstetrics [facility] [address] [place] [address] Anh Cisneros CRNP [address] [place] [address] Health Maintenance Due Date Last Done Comments [...] filedocumented as of this encounter Care Teams Laborer Electroplating Relationship Specialty Start Date End Date Navneet Alvarez OD [address] [place] [address] PCP - General Family Medicine 07/03/21 documented as of this encounter
--- OUTSIDE RECORDS SUMMARY | 2024-07-14 02:54 | External Medical Summary | Summary of Care ---
Author Name Unknown Organization [facility] Address [address] [place] [address] Phone [phone] Care Team Providers Care Chlorine Cells Operator Name Role Phone ScooterNavneet wiggins Israel WELSH Primary Care Provider [phone] Reason for Visit * Reason Onset Date Comments Appointment 06/22/2024 Encounter Details Date Type Department Care Team (Late st Contact Info) Description 06/22/2024 Telephone Gynecology/Obstetrics [facility] [address] [place] [address] Haley Redding PA-C [address] [place] [address] Appointment Allergies Active Allergy Reactions Criticality Noted [...] available Ventricular Rate: 99 Atrial Rate: 99 [place] Interval: 156 QRS Duration: 72 QT/QTc: 350/449 ms P-R-T [place]: 64 : 78 : 50 degrees LLQ [...] [facility] [address] [place] [address] Anh Cisneros CRNP [address] [place] [address] Health Maintenance Due Date Last Done Comments [...] filedocumented as of this encounter Care Teams Chlorine Cells Operator Relationship Specialty Start Date End Date Navneet Alvarez OD [address] [place] [address] PCP - General Family Medicine 07/03/21 documented as of this encounter
--- OUTSIDE RECORDS SUMMARY | 2024-07-14 02:54 | External Medical Summary | Summary of Care ---
Author Name Unknown Organization [facility] Address [address] [place] [address] Phone [phone] Care Team Providers Care Engineering Consultant Name Role Phone Navneet Alvarez Israel WELSH Primary Care Provider [phone] Reason for Visit * Reason Onset Date Comments Referral 06/05/2024 Encounter Details Date Type Department Care Team (Late st Contact Info) Description 06/05/2024 Telephone Hose Tester Obstetrics Maternal Medicine, [place] [address], [place] [id number] [place] Nurse Hose Tester [facility] [address] [place], [place] [phone] Referral Allergies Active Allergy Reactions Criticality Noted Date Comments Penicillins 11/29/2003 hives documented as of this encounter (statuses as of 06/10/2024) Medications Medication Sig Dispensed Refills Start Date End Date Status 28-0.8 MG Oral Tablet Take by mouth. Active Amphetamine-Dextroamph et ER 25 MG Oral Capsule Extended Release 24 Hour (Adderall XR) Take 1 Capsule by mouth in the morning. Active Amphetamine-Dextroamph etamine 10 MG Oral Tablet (Adderall) TAKE ONE TABLET BY MOUTH AT NOON 04/06/2024 Active documented as of this encounter (statuses [...] available Ventricular Rate: 99 Atrial Rate: 99 [place] Interval: 156 QRS Duration: 72 QT/QTc: 350/449 ms P-R-T [place]: 64 : 78 : 50 degrees LLQ [...] 05/01/2024 Does the household have a re lar source of income? (Household - for ages [...] encounter Miscellaneous Notes * Telephone Encounter - Lou Tariq OSA - 06/10/2024 9:24 AM EDT Phone call to patient. Left message on [employer]'s voice mail. [facility] * Telephone Encounter - Lou Tariq OSA - 06/08/2024 8:58 AM EDT Tried call pt. No answer, could not leave voicemail. Sent My[employer] message. * Telephone Encounter - Regine Laird CCMA - 06/05/2024 2:01 PM EDT Estimated Date of Delivery: 08/12/24 Please schedule for 45 MINUTE CONSULT SIMPLE MEDICAL WITH DIRECTOR OF MATERNITY SERVICES, in time frame of next available or atpatient's earliest convenience at location [facility] with the indication of AMA (36), hx opioid use, limited care, hx cervical cone x2, tobacco use, ADHD, endometriosis, tachycardia. Please schedule anatomy within 2-3 weeks. Referring Provider: Haley Redding PA-C documented in this encounter Plan of Treatment Upcoming Encounters Date Type Department Care Team (Late st Contact Info) Description 06/22/2024 11:45 AM EDT [facility] [address] [place] [address] Haley Redding PA-C [address] [place] [address] Health Maintenance Due Date Last Done Comments [...] filedocumented as of this encounter Care Teams Engineering Consultant Relationship Specialty Start Date End Date Navneet Alvarez OD [address] [facility] [place] [address] PCP - General Family Medicine 07/03/21 documented as of this encounter
--- OUTSIDE RECORDS SUMMARY | 2024-07-14 02:54 | External Medical Summary | Summary of Care ---
Author Name Unknown Organization [facility] Address [address] [place] [address] Phone [phone] Care Team Providers Care Slip Cover Sewer Name Role Phone Navneet Alvarez ANITHA Primary Care Provider [phone] Reason for Visit * Reason Comments Outpatient Testing Encounter Details Date Type Department Care Team (Late st Contact Info) Description 06/25/2024 3:50 PM EDT Laboratory Laboratory, [facility] [address] [place] [id number] [facility] [address] [place] [address] Arrived Allergies Active Allergy Reactions Criticality Noted Date [...] available Ventricular Rate: 99 Atrial Rate: 99 [place] Interval: 156 QRS Duration: 72 QT/QTc: 350/449 ms P-R-T [place]: 64 : 78 : 50 degrees LLQ [...] on file documented as of this encounter Plan of Treatment Upcoming Encounters Date Type Department Care Team (Late st Contact Info) Description 07/06/2024 10:15 AM EDT Office Visit Gynecology/Obstetrics [facility] [address] [place] [address] Anh Cisneros CRNP [address] [place] [address] 07/13/2024 1:45 PM EDT Office Visit Gynecology/Obstetrics [facility] [address] [place] [address] Chrissy Wei CRNP [address] [place] [address] 07/20/2024 2:15 PM EDT Office Visit Gynecology/Obstetrics [facility] [address] [place] [address] Anh Cisneros CRNP [address] [place] [address] 07/27/2024 1:30 PM EST Office Visit Gynecology/Obstetrics [facility] [address] [place] [address] Chrissy Wei CRNP [address] [place] [address] 08/03/2024 3:00 PM EST Office Visit Gynecology/Obstetrics [facility] [address] [place] [address] Salvador Holcomb MD [address] [place] [address] Health Maintenance Due Date Last Done Comments [...] filedocumented as of this encounter Care Teams Slip Cover Sewer Relationship Specialty Start Date End Date Navneet Alvarez OD [address] [facility] [place] [address] PCP - General Family Medicine 07/03/21 documented as of this encounter
--- OUTSIDE RECORDS SUMMARY | 2024-07-14 02:54 | External Medical Summary | Summary of Care ---
Author Name Unknown Organization [facility] Address [address] [place] [address] Phone [phone] Care Team Providers Care Applications Systems Analyst Name Role Phone Navneet Alvarez Israel WELSH Primary Care Provider [phone] Reason for Visit * Reason Onset Date Comments Appointment 06/08/2024 Encounter Details Date Type Department Care Team (Late st Contact Info) Description 06/08/2024 Telephone Gynecology/Obstetrics [facility] [address] [place] [address] Chrissy Wei CRNP [address] [place] [address] Appointment Allergies Active Allergy Reactions Criticality Noted [...] QRS Duration: 72 QT/QTc: 350/449 ms P-R-T [place]: 64 : 78 : 50 degrees LLQ [...] encounter Miscellaneous Notes * Telephone Encounter - Dayana Rivera OSA [...] 06/22/2024 11:45 AM EDT [facility] [address] [place] [address] Shy Redding PA-C [address] [place] [address] Health Maintenance Due Date Last Done Comments [...] filedocumented as of this encounter Care Teams Applications Systems Analyst Relationship Specialty Start Date End Date Navneet Alvarez OD [address] [facility] [place] [address] PCP - General Family Medicine 07/03/21 documented as of this encounter
--- OUTSIDE RECORDS SUMMARY | 2024-07-14 02:54 | External Medical Summary ---
Author Name Unknown Address Unknown Organization [facility] [[email or web address] [place] [address] [place] [address] Laboratory Report Ordering Provider Test Date Status JUDIE BEGUM 07/13/2024 14:51:00 Final Observation Date Value Abnormality Reference (Units ) Status Color of Urine by Auto 07/13/2024 14:51:00 Yellow Light Yellow, Yellow Final Clarity, Urine 07/13/2024 14:51:00 Clear Clear Final Glucose [Mass/volume] in Urine by Automated test strip 07/13/2024 14:51:00 Negative Negative (mg/dL) Final Bilirubin.total [Presence] in Urine by Automated test strip 07/13/2024 14:51:00 Negative Negative Final Ketones [Mass/volume] in Urine by Automated test strip 07/13/2024 14:51:00 Negative Negative (mg/dL) Final Specific gravity, Urine 07/13/2024 14:51:00 1.020 1.003-1.030 Final Hemoglobin [Presence] in Urine by Automated test strip 07/13/2024 14:51:00 Negative Negative Final pH, Urine 07/13/2024 14:51:00 7.0 5.0, 5.5, 6.0, 6.5, 7.0, 7.5 (units) Final Protein [Mass/volume] in Urine by Automated test strip 07/13/2024 14:51:00 30 Abnormal Negative (mg/dL) Final Urobilinogen, Urine 07/13/2024 14:51:00 0.2 0.2, 1.0 (mg/dL) Final Nitrite [Presence] in Urine by Automated test strip 07/13/2024 14:51:00 Negative Negative Final Leukocyte esterase [Presence] in Urine by Automated test strip 07/13/2024 14:51:00 Trace Abnormal Negative Final Performing Location [email or web address] [place] [address] [place] [address]
--- OUTSIDE RECORDS SUMMARY | 2024-07-14 02:54 | External Medical Summary | Summary of Care ---
Author Name Unknown Organization [facility] Address [address] [place] [address] Phone [phone] Care Team Providers Care Wildlife Biology Technician Name Role Phone Navneet Alvarez Israel WELSH Primary Care Provider Reason for Visit * Reason Onset Date Comments Referral 06/05/2024 Encounter Details Date Type Department Care Team (Late st Contact Info) Description 06/05/2024 Telephone [employer] Sales Obstetrics [facility] Medicine, [place] [address], [place] [id number] [place] Nurse [employer] [facility] [address] [place] [place], [place] [phone] Referral Allergies Active Allergy Reactions Criticality Noted Date Comments Penicillins 11/29/2003 hives documented as of this encounter (statuses as of 06/11/2024) Medications Medication Sig Dispensed Refills Start Date [...] as of this encounter (statuses as of 06/11/2024) Active Problems Problem Noted Date Diagnosed Date [...] available Ventricular Rate: 99 Atrial Rate: 99 [place] Interval: 156 QRS Duration: 72 QT/QTc: 350/449 ms P-R-T [place]: 64 : 78 : 50 degrees LLQ abdominal pain 08/22/2012 Endometriosis 07/01/2012 Irritable bowel syndrome Estimated Date of Delivery Comme nts Yes 08/12/2024 Based on last me nstrual period of 11/06/2023 documented as of this encounter (statuses as of 06/11/2024) Immunizations Name Administration Dates Next Due TDAP [...] Telephone Encounter - Lou Tariq OSA - 06/11/2024 8:05 AM EDT multiple unsuccessful attempts to contact pt, sent letter * Telephone Encounter - Lou Tariq OSA - 06/10/2024 9:24 AM EDT Phone call to patient. Left message on [employer] voice mail. [facility] * Telephone Encounter - Lou Tariq OSA - 06/08/2024 8:58 AM EDT Tried call pt. No answer, could not leave voicemail. Sent MyG message. * Telephone Encounter - Regine Laird CCMA - 06/05/2024 2:01 PM EDT Estimated Date of Delivery: 08/12/24 Please schedule for 45 MINUTE CONSULT SIMPLE MEDICAL WITH NET DEVELOPER, in time frame of next available or atpatient's earliest convenience at location [facility] with the indication of AMA (36), hx opioid use, limited care, hx cervical cone x2, tobacco use, ADHD, endometriosis, tachycardia. Please schedule anatomy within 2-3 weeks. Referring Provider: Haley Redding PA-C documented in this encounter Plan of Treatment Upcoming Encounters Date Type Department Care Team (Late st Contact Info) Description 06/22/2024 11:45 AM EDT Office Visit Gynecology/Obstetrics [facility] [address] [place] [address] Haley Redding PA-C [address] [place] [address] Health Maintenance Due Date Last Done Comments [...] filedocumented as of this encounter Care Teams Wildlife Biology Technician Relationship Specialty Start Date End Date Navneet Alvarez OD [address] [facility] [place] [address] PCP - General Family Medicine 07/03/21 documented as of this encounter
--- OUTSIDE RECORDS SUMMARY | 2024-07-14 02:54 | External Medical Summary | Summary of Care ---
Author Name Unknown Organization [facility] Address [address] [place] [address] Phone [phone] Care Team Providers Care Sieve Repairer Name Role Phone ScooterNavneet wiggins Israel WELSH Primary Care Provider [phone] Encounter Details Date Type Department Care Team (Late st Contact Info) Description 06/10/2024 Orders Only Gynecology/Obstetrics, [address] [id number] Haley Redding PA-C [address] [place] [address] Allergies Active Allergy Reactions Criticality Noted Date [...] QRS Duration: 72 QT/QTc: 350/449 ms P-R-T [place]: 64 : 78 : 50 degrees LLQ [...] No 05/01/2024 Does the household have a [facility] source of income? (Household - for ages [...] Gynecology/Obstetrics [facility] [address] [place] [address] Haley Redding PA-C [address] [place] [address] Health Maintenance Due Date Last Done Comments [...] filedocumented as of this encounter Care Teams Sieve Repairer Relationship Specialty Start Date End Date Navneet Alvarez OD [address] [place] [address] PCP - General Family Medicine 07/03/21 documented as of this encounter
--- OUTSIDE RECORDS SUMMARY | 2024-07-14 02:55 | External Medical Summary | Summary of Care ---
Author Name Unknown Organization [facility] Address [address] [place] [address] Phone [phone] Care Team Providers Care Assembler Unit Name Role Phone KimNavneet Israel WELSH Primary Care Provider [phone] Encounter Details Date Type Department Care Team (Late st Contact Info) Description 06/09/2024 Orders Only Gynecology/Obstetrics [facility] [address] [place] [address] Haley Redding PA-C [address] [place] [address] Allergies Active Allergy Reactions Criticality Noted Date Comments Penicillins 11/29/2003 hives documented as of this encounter (statuses as of 06/09/2024) Medications Medication Sig Dispensed Refills Start Date [...] before bedtime. 60 Tablet 3 06/09/2024 Active documented as of this encounter (statuses as of 06/09/2024) Active Problems Problem Noted Date Diagnosed Date [...] available Ventricular Rate: 99 Atrial Rate: 99 [place] Interval: 156 QRS Duration: 72 QT/QTc: 350/449 ms P-R-T [place]: 64 : 78 : 50 degrees LLQ abdominal pain 08/22/2012 Endometriosis 07/01/2012 Irritable bowel syndrome Estimated Date of Delivery Comme nts Yes 08/12/2024 Based on last me nstrual period of 11/06/2023 documented as of this encounter (statuses as of 06/09/2024) Immunizations Name Administration Dates Next Due TDAP [...] Care Team (Late st Contact Info) Description 06/09/2024 3:30 PM EDT Nurse Only Gynecology/Obstetrics [facility] [address] [place] [address] Gw, Nurse Obgyn Injection [address] [place] [address] Health Maintenance Due Date Last Done Comments [...] filedocumented as of this encounter Care Teams Assembler Unit Relationship Specialty Start Date End Date Navneet Alvarez OD [address] [facility] [place] [address] PCP - General Family Medicine 07/03/21 documented as of this encounter
--- OUTSIDE RECORDS SUMMARY | 2024-07-14 02:55 | External Medical Summary | Summary of Care ---
Author Name Unknown Organization [facility] Address [address] [place] [address] Phone [phone] Care Team Providers Care Correctional Manager Name Role Phone Navneet Alvarez Israel WELSH Primary Care Provider [phone] Reason for Visit * Reason Onset Date Comments Appointment 06/08/2024 Encounter Details Date Type Department Care Team (Late st Contact Info) Description 06/08/2024 Telephone Gynecology/Obstetrics [facility] [address] [place] [address] Chrissy Wei CRNP [address] [place] [place] [address] Appointment Allergies Active Allergy Reactions Criticality Noted [...] Active Problems Problem Noted Date Diagnosed Date High-risk 06/08/2024 Antepartum multigravida of advanced maternal age 0906/05/2024 History of opioid abuse 06/05/2024 Tobacco smoking affecting , antepartum 06/05/2024 Attention deficit hyperactivity disorder (ADHD) 06/05/2024 Tachycardia 06/05/2024 LLQ abdominal pain 08/22/2012 Endometriosis 07/01/2012 Irritable [...] as of this encounter Miscellaneous Notes * Addendum Note - Haley Redding PA-C - 06/09/2024 1:57 PM EDTAddended by: HALEY REDDING on: 06/09/2024 01:57 PM Modules accepted: Orders * Telephone Encounter - Haley Redding PA-C - 06/09/2024 1:54 PM EDT [...] 06/09/2024 3:30 PM EDT Nurse Only [facility] [address] [place] [address] , Nurse Obgyn Injection [address] [address] Health Maintenance Due Date Last Done Comments [...] filedocumented as of this encounter Care Teams Correctional Manager Relationship Specialty Start Date End Date Navneet Alvarez OD [address] [facility] [place] [address] PCP - General Family Medicine 07/03/21 documented as of this encounter
--- OUTSIDE RECORDS SUMMARY | 2024-07-14 02:55 | External Medical Summary | Summary of Care ---
Author Name Unknown Organization [facility] Address [address] [place] [address] Phone [phone] Care Team Providers Care Hedis Analyst Name Role Phone Navneet Alvarez OD Primary Care Provider [phone] Reason for Referral * Evaluate & Treat - Unlimited Visits (Within 10 days (routine)) - Pending Review Specialty Diagnoses / Procedures Referred By Selwyn moya Referred To Contact Obstetrics/Gynecology / Maternal Medicine Diagnoses Antepartum multigravida of advanced maternal age History of opioid abuse (HCC) Tobacco smoking affecting , antepartum Attention deficit hyperactivity disorder (ADHD), unspecified ADHD type Endometriosis Tachycardia Limited care, antepartum History of cone biopsy of cervix Haley Redding PA-C [address] [place] [address] Referral ID Status Reason Start Date Expiration Date Visits Requested Visits Authorized [id number] Pending Review Specialty Services Required 06/05/[phone] Question Answer Referral Priority Within 10 days (routine) Has the patient had a viability scan? Yes Date performed 01/09/2024 Location performed Other Reason for referral Other Please provide additional details AMA, history of opioiod use, limited care, history of cervical cone x 2, tobacco use, ADHD, endometriosis and tachycardia Where should this appointment be scheduled? [facility] Comments /Para: LMP: Patient's last menstrual period was 11/06/2023. Patient is . DON: 08/12/2024, by Last Menstrual Period Pre-Gravid BMI: Could not be calculated Reason for Visit * Reason Comments New Visit Encounter Details Date Type Department Care Team (Latest Contact Info) Description 06/05/2024 11:30 AM EDT Office Visit Gynecology/Obstetric s [facility] [address] [place] [address] Haley Redding PA-C [address] [place] [place] [phone] Antepartum multigravida of advanced maternal age*; History of opioid abuse (HCC); Tobacco smoking affecting , antepartum; Attention deficit hyperactivity disorder (ADHD), unspecified ADHD type; Endometriosis; Tachycardia; Limited care, antepartum; Elevated BP without diagnosis of hypertension; Supervision of high-risk , unspecified trimester; History of cone biopsy of cervix Allergies Active Allergy Reactions Criticality Noted Date Comments Penicillins 11/29/2003 hives documented as of this encounter (statuses as of 06/05/2024) Medications Medication Sig Dispensed Refills Start Date [...] as of this encounter (statuses as of 06/05/2024) Active Problems Problem Noted Date Diagnosed Date Antepartum multigravida of advanced maternal age 0906/05/2024 History of opioid abuse 06/05/2024 Tobacco smoking affecting , antepartum 06/05/2024 Attention deficit hyperactivity disorder (ADHD) 06/05/2024 Tachycardia 06/05/2024 LLQ abdominal pain 08/22/2012 Endometriosis 07/01/2012 Irritable bowel syndrome Estimated Date of Delivery Comme nts Yes 08/12/2024 Based on last me nstrual period of 11/06/2023 documented as of this encounter (statuses as of 06/05/2024) Immunizations Name Administration Dates Next Due TDAP [...] Sign Reading Time Taken Comments Blood Pressure 138/94 06/05/2024 11:39 AM EDT repeat 136/94. repeat #3 120/78 Pulse 100 06/05/2024 11:39 AM EDT Temperature - - Respiratory Rate - - Oxygen Saturation 99% 06/05/2024 11: 39 AM EDT Inhaled Oxygen Concentration - - Weight 59 kg (130 lb) 06/05/2024 11:39 AM EDT Height 157.5 cm (5' 2") 06/05/2024 11:3 9 AM EDT Body Mass Index 23.78 06/05/2024 11:39 AM EDT documented in this encounter Progress Notes * Haley Redding PA-C - 06/05/2024 11:30 AM EDT CC: NOB HPI: Melisa Loaiza is a 38 year old female here for initial OB exam. DON 08/12/2024 by LMP. LMP 11/06/2023, patient had first trimester ultrasound completed through [facility] on 01/09/2024 that showed single viable IUP consistent with LMP dating. Patient reports started at [facility] and seen back once. Has not been seen back. Has not had anatomy ultrasound or NOB labs. Patient reports started new job and do to scheduling has not been able to be seen back. She is taking vitamins. Reviewed PMH, social hx, family hx, surgical hx, ob hx with patient. Pertinent positives: - AMA currently 38 years old. Did not complete genetic testing. - History of opioid use 8 years ago, denies any recent use. She states would like to maybe enter into subutex program. Plans to discuss with available program. - Daily tobacco smoker, 10 c/d early on; 1/4 of pack now; cessation encouraged - ADHD was prescribed adderall, has not been taking since [facility] - Endometriosis: diagnosed by lap in 2011. Pap smear 01/09/2024: NILM/-HPV (outside records) - H/o cervical cones: pt states multiple cone biopsies. X 2. - Tachycardia: racing heart after COVID. Follows with Cardiology in [place]. Pt advised will resolve in 2-5 years. Reviewed current medications with patient. First tri ultrasound 01/09/2024: 9w0d. + viability. DON 08/13/2024. LMP dating 08/12/2024. Lab 12/2023: Chlamydia/GC: negative OB History Para Term AB Living 4 3 SAB IAB Ectopic Multiple Live Births 3 # Outcome Date GA Lbr Roberto/2nd Weight Sex Type Anes PTL Lv 4 Current 3 SAB 2 SAB 1 SAB Past Medical History: Diagnosis Date Abdominal pain Dysplasia of cervix, low grade (MICHELLE 1) 2018, 2019 Endometriosis Hand, foot and mouth disease 07/05/2014 History of conization of cervix 2012 HPV in female Irritable bowel syndrome Social History Socioeconomic History Marital status: Single Tobacco Use Smoking status: Every Day Current packs/day: 6.00 Types: Cigarettes Smokeless tobacco: Never Tobacco comments: 6-7 cigs/day Substance and Sexual Activity Alcohol use: Not Currently Comment: social Drug use: No Sexual activity: Yes Partners: Male Social Determinants of Health Financial Resource Strain: Low Risk (05/01/2024) Financial Resource Strain Do you have any trouble paying for your medications, or do you think you might in the future? (Adult - for ages 18 years and over): No Food Insecurity: No Food Insecurity (05/01/2024) Food Insecurity Do you need food for this week? (Adult - for ages 18 years and over): No Transportation Needs: No Transportation Needs (05/01/2024) Transportation Needs Has lack of transportation kept you from medical appointments, meetings, work, or from getting things needed for daily living? Check all that apply. (Adult - for ages 18 years and over): No Social Connections: Socially Integrated (05/01/2024) Social Connections How often do you feel lonely or isolated from those around you? (Adult - for ages 18 years and over): Never Housing Stability: Low Risk (05/01/2024) Housing Stability Do you currently live in a prison or have no steady place to sleep at night? (Adult - for ages 18 years and over): No Are you homeless or worried that you might be in the future? (Adult - for ages 18 years and over): No Past Surgical History: Procedure Laterality Date COLONOSCOPY, DIAGNOSTIC (RECTUM) 09/01/2012 COLONOSCOPY FLEXIBLE PROXIMAL DIAGNOSTIC performed by Clive Herrera MD at [facility] COLPOSCOPY OF CERVIX W/BIOPSY 2018, 2019 COLPSCPY CERVIX W/LOOP ELECT 09/2020 CONIZATION OF CERVIX 2011 CT ABD/PELVIS W IV AND W ORAL CONTRAST 01/23/2016 diffuse thickening of bladder wall, constipation DENTAL SURGERY PROCEDURE NEC around 2008 wisdom teeth LAPAROSCOPY,BIOPSY 04/23/2012 endometriosis US PELVIS TRANS-ABDOMINAL 07/29/2013 normal pelvic ultrasound VASC DUPLEX VENOUS LE BILAT 03/24/2014 no DVT, 3 cm mass vs Smith's cyst filled with hemorrhage or debris right knee VASC DUPLEX VENOUS LE BILAT 02/06/2015 No DVT Current Outpatient Medications Medication Sig Dispense Refill 28-0.8 MG Oral Tablet Take by mouth. Amphetamine-Dextroamphet ER 25 MG Oral Capsule Extended Release 24 Hour (Adderall XR) Take 1 Capsule by mouth in the morning. (Patient not taking: Reported on 05/07/2024) Amphetamine-Dextroamphetamine 10 MG Oral Tablet (Adderall) TAKE ONE TABLET BY MOUTH AT NOON (Patient not taking: Reported on 05/07/2024) No current facility-administered medications for this visit. Review of patient's allergies indicates: Allergen Reactions Penicillins hives Family History Problem Relation Name Age of Onset Prostate cancer Father NITHYA Hypertension Father NITHYA Bladder Cancer Grandmother (Maternal) SHAKIRA Cancer Grandmother (Paternal) ARMAAN Denies family history of genetic conditions in FOB's families. Maternal grandmother with leukemia. ROS: General: no fevers, chills CV: no chest pain, SOB GI: no constipation, diarrhea, + nausea Breast: no masses, nipple discharge, + tenderness : no vaginal bleeding, unusual vaginal discharge, dysuria Psychological: no anxiety, depression, SI/HI PHYSICAL EXAM: please see physical BP 138/94 Comment: repeat 136/94. repeat #3 120/78 | Pulse 100 | Ht 1.575 m (5' 2") | Wt 59 kg (130lb) | LMP 11/06/2023 | SpO2 99% | BMI 23.78 kg/m | BSA 1.61 m ASSESSMENT assessment with Non-stress Test completed on 06/05/2024 at 30.2 weeks gestation for indicationof elevated BP heart baseline: 145 bpm Variability: Moderate Decelerations: absent Accelerations: present, meet 10x10 criteria Contractions: None NST start time: 12:16 NST stop time: 12:54 NST strip reviewed, interpreted, and approved by OB provider, Haley Redding PA-C. NST strip stored in clinic storage file ASSESSMENT/PLAN: Antepartum multigravida of advanced maternal age (Primary) - Discussed timing of routine OB care - Discussed glucola and anatomy ultrasound and need to complete both PARVEEN. Pt agreeable. Referral placed to [facility], will plan local anatomy ultrasound for now. - Recommended Flu and Covid vaccine due to increased risk of severe disease in . Patient will notify office. - Offered genetic screening and explained that screening does not provide a definitive diagnosis. Patient would like to complete Qnatal today - Recommended clean healthy diet and discussed foods/drinks to avoid in . Discussed recommend weight gain in . - Counseled on OTC measures to help alleviate nausea and advised to call if these are ineffective - Recommended daily vitamin. - Discussed labs as ordered and instructed patient to present to lab following appointment. - MFM referral indicated. Pt agreeable to referral - CBC WITH WBC DIFFERENTIAL AND ANEMIA REFLEX WORKUP; Future; Expected date: 06/05/2024 - 50-G GESTATIONAL GLUCOSE, 1 HOUR; Future; Expected date: 06/05/2024 - TYPE AND SCREEN; Future; Expected date: 06/05/2024 - HEPATITIS C ANTIBODY SCREEN WITH PROGRESSION TO HEPATITIS C RNA QUANTITATIVE; Future; Expected date: 06/05/2024 - HEPATITIS B SURFACE ANTIGEN; Future; Expected date: 06/05/2024 - SYPHILIS ANTIBODY SCREEN WITH REFLEX TO RPR; Future; Expected date: 06/05/2024 - RUBELLA IGG ANTIBODY; Future; Expected date: 06/05/2024 - HIV ANTIGEN & ANTIBODY SCREEN W/ CONFIRMATION; Future; Expected date: 06/05/2024 - US PREG SINGLE/1ST GEST, 14 WEEKS OR LATER; Future; Expected date: 06/05/2024 - QNATAL ADVANCED (QUEST); Future; Expected date: 06/05/2024 - [facility] US MATERNAL 1ST FETUS; Future; Expected date: 06/05/2024 - MATERNAL MEDICINE REFERRAL OP History of opioid abuse (HCC) - MF US MATERNAL 1ST FETUS; Future; Expected date: 06/05/2024 - MATERNAL MEDICINE REFERRAL OP Tobacco smoking affecting , antepartum - [facility] US MATERNAL 1ST FETUS; Future; Expected date: 06/05/2024 - MATERNAL MEDICINE REFERRAL OP Attention deficit hyperactivity disorder (ADHD), unspecified ADHD type No on medication - [facility] US MATERNAL 1ST FETUS; Future; Expected date: 06/05/2024 - MATERNAL MEDICINE REFERRAL OP Endometriosis - MF US MATERNAL 1ST FETUS; Future; Expected date: 06/05/2024 - MATERNAL MEDICINE REFERRAL OP Tachycardia See Cardiology in [place]. Pt states rates has improved since first diagnosed. Denies symptoms. - M US MATERNAL 1ST FETUS; Future; Expected date: 06/05/2024 - MATERNAL MEDICINE REFERRAL OP - EKG; Future; Expected date: 06/05/2024 Limited care, antepartum - [facility] US MATERNAL 1ST FETUS; Future; Expected date: 06/05/2024 - MATERNAL MEDICINE REFERRAL OP Elevated BP without diagnosis of hypertension No history of HTN. Improved throughout visit: 138/94 -> 134/94 -> 120/78 No proteins by site dip Denies h/a, RUQ pain, chest pain, SOB, n/v, epigastric pain. NST reactive. Recommended labs, RTC in 3 days for ALEKSANDRA/BP check. PEC precautions in meantime. - COMPREHENSIVE METABOLIC PANEL - PROTEIN/ CREATININE RATIO, URINE - URINALYSIS, POINT OF CARE (ENTER/EDIT) Supervision of high-risk , unspecified trimester - QNATAL ADVANCED (QUEST); Future; Expected date: 06/05/2024 History of cone biopsy of cervix - [facility] US MATERNAL 1ST FETUS; Future; Expected date: 06/05/2024 - MATERNAL MEDICINE REFERRAL OP Follow Up: Return in about 3 days (around 06/08/2024), or if symptoms worsen or fail to improve, forReturn visit. | For: Return visit | Check- out note: - Need ALEKSANDRA/BP check Saturday - Please arrive at lab - Needs anatomy ultrasound PARVEEN - Will need appointment for glucola - Please schedule EKG -- thank you! Haley Redding PA-C documented in this encounter Plan of Treatment Upcoming Encounters Date Type Department Care Team (Late st Contact Info) Description 06/08/2024 8:40 AM EDT [facility] [address] [place] [phone] [facility] [address] [place] [place] [phone] 06/08/2024 8:45 AM EDT [facility] [address] [place] [place] [address] Chrissy Wei CRNP [address] [address] 06/08/2024 1:45 PM EDT Imaging Radiology [facility] [address] [address] 06/08/2024 3:15 PM EDT Cardiac Studies [facility] [address] [place] [place] [address] Pending Results Name Type Priority Associated Diagnoses Date /Time CBC WITH WBC DIFFERENTIAL AND ANEMIA REFLEX WORKUP Lab Routine Antepartum multigravida of advanced maternal age 0906/05/2024 1:23 PM EDT TYPE AND SCREEN Lab Routine Antepartum multigravida of advanced maternal age 0906/05/2024 1:23 PM EDT HEPATITIS C ANTIBODY SCREEN WITH PROGRESSION TO HEPATITIS C RNA QUANTITATIVE Lab Routine Antepartum multigravida of advanced maternal age 0906/05/2024 1:23 PM EDT HEPATITIS B SURFACE ANTIGEN Lab Routine Antepartum multigravida of advanced maternal age 0906/05/2024 1:23 PM EDT SYPHILIS ANTIBODY SCREEN WITH REFLEX TO RPR Lab Routine Antepartum multigravida of advanced maternal age 0906/05/2024 1:23 PM EDT RUBELLA IGG ANTIBODY Lab Routine Antepartum multigravida of advanced maternal age 0906/05/2024 1:23 PM EDT HIV ANTIGEN & ANTIBODY SCREEN W/ CONFIRMATION Lab Routine Antepartum multigravida of advanced maternal age 0906/05/2024 1:23 PM EDT QNATAL ADVANCED (QUEST) Lab Routine Antepartum multigravida of advanced maternal age Supervision of high-risk , unspecified trimester 06/05/2024 1:23 PM EDT COMPREHENSIVE METABOLIC PANEL Lab Routine Elevated BP without diagnosis of hypertension 06/05/2024 1:23 PM EDT PROTEIN/ CREATININE RATIO, URINE Lab Routine Elevated BP without diagnosis of hypertension 06/05/2024 12:22 PM EDT Scheduled Orders Name Type Priority Associated Diagnoses Orde r Schedule CBC WITH WBC DIFFERENTIAL AND ANEMIA REFLEX WORKUP Lab Routine Antepartum multigravida of advanced maternal age Expected: 06/05/2024, Expires: 06/05/2025 50-G GESTATIONAL GLUCOSE, 1 HOUR Lab Routine Antepartum multigravida of advanced maternal age Expected: 06/05/2024, Expires: 06/05/2025 TYPE AND SCREEN Lab Routine Antepartum multigravida of advanced maternal age Expected: 06/05/2024, Expires: 07/05/2025 HEPATITIS C ANTIBODY SCREEN WITH PROGRESSION TO HEPATITIS C RNA QUANTITATIVE Lab Routine Antepartum multigravida of advanced maternal age Expected: 06/05/2024, Expires: 06/05/2025 HEPATITIS B SURFACE ANTIGEN Lab Routine Antepartum multigravida of advanced maternal age Expected: 06/05/2024, Expires: 07/05/2025 SYPHILIS ANTIBODY SCREEN WITH REFLEX TO RPR Lab Routine Antepartum multigravida of advanced maternal age Expected: 06/05/2024, Expires: 06/05/2025 RUBELLA IGG ANTIBODY Lab Routine Antepartum multigravida of advanced maternal age Expected: 06/05/2024, Expires: 06/05/2025 HIV ANTIGEN & ANTIBODY SCREEN W/ CONFIRMATION Lab Routine Antepartum multigravida of advanced maternal age Expected: 06/05/2024, Expires: 06/05/2025 US PREG SINGLE/1ST GEST, 14 WEEKS OR LATER Medical Imaging Routine Antepartum multigravida of advanced maternal age Expected: 06/05/2024, Expires: 07/05/2025 QNATAL ADVANCED (QUEST) Lab Routine Antepartum multigravida of advanced maternal age Supervision of high-risk , unspecified trimester Expected: 06/05/2024, Expires: 06/05/2025 MFM US MATERNAL 1ST FETUS Medical Imaging Routine Antepartum multigravida of advanced maternal age History of opioid abuse (HCC) Tobacco smoking affecting , antepartum Attention deficit hyperactivity disorder (ADHD), unspecified ADHD type Endometriosis Tachycardia Limited care, antepartum History of cone biopsy of cervix Expected: 06/05/2024, Expires: 07/05/2025 EKG EKG Routine Tachycardia Expected: 06/05/2024 (Approximate), Expires: 07/05/2025 Scheduled Referrals Name Type Priority Associated Diagnoses Orde r Schedule MATERNAL MEDICINE REFERRAL OP Referral Within 10 days (routine) Antepartum multigravida of advanced maternal age History of opioid abuse (HCC) Tobacco smoking affecting , antepartum Attention deficit hyperactivity disorder (ADHD), unspecified ADHD type Endometriosis Tachycardia Limited care, antepartum History of cone biopsy of cervix Ordered: 06/05/2024 Health Maintenance Due Date Last Done Comments [...] Comments URINALYSIS, POINT OF CARE (ENTER/EDIT) Routine 06/05/2024 Elevated BP without diagnosis of hypertension documented in this encounter Results * URINALYSIS, POINT OF CARE (ENTER/EDIT) (06/05/2024) Color, Urine Light Yellow Yellow or Light Yellow Clarity, Urine Clear Clear Glucose, Urine Negative Negative mg/dL Bilirubin, Urine Negative Negative Ketone, Urine Negative Negative mg/dL Specific [place], Urine 1.015 1.003 - 1.030 Blood, Urine Negative Negative pH, Urine 7.5 5.0 - 7.5 units Protein, Urine Negative Negative mg/dL Urobilinogen, Urine 0.2 0.2 - 1.0 mg/dL Nitrite, Urine Negative Negative Esterase, Urine Negative Negative Urine 06/05/2024 Haley Redding PA-C LAB POINT OF CARE TE ST ENTER/EDIT ORDERABLES documented in this encounter Visit Diagnoses Diagnosis Antepartum multigravida of advanced maternal age- Primary History of opioid abuse (HCC) Opioid abuse, in remission Tobacco smoking affecting , antepartum Attention deficit hyperactivity disorder (ADHD), unspecified ADHD type Endometriosis Endometriosis, site unspecified Tachycardia Tachycardia, unspecified Limited care, antepartum Elevated BP without diagnosis of hypertension Supervision of high-risk , unspecified trimester History of cone biopsy of cervix Other postprocedural status documented in this encounter Care Teams Hedis Analyst Relationship Specialty Start Date End Date Navneet Alvarez OD [address] [facility] [place] [phone] PCP - General Family Medicine 07/03/21 documented as of this encounter
--- OUTSIDE RECORDS SUMMARY | 2024-07-14 02:55 | External Medical Summary ---
Author Name Unknown Address Unknown Organization K01:[facility] - [address] [place] [address] Laboratory Report Ordering Provider Test Date Status JUDEI BEGUM 06/05/2024 13:23:33 Final Observation Date Value Abnormality Reference (Units ) Status Hep B surface Ag 06/05/2024 13:23:33 Negative Neg ative Final Performing Location [facility] - [address] [facility] [address]
--- OUTSIDE RECORDS SUMMARY | 2024-07-14 02:55 | External Medical Summary | Summary of Care ---
Author Name Unknown Organization [facility] Address [address] [place] [address] Phone [phone] Care Team Providers Care Results Technician Name Role Phone Navneet Alvarez Israel WELSH Primary Care Provider [phone] Reason for Visit * Reason Onset Date Comments Appointment 06/08/2024 Encounter Details Date Type Department Care Team (Late st Contact Info) Description 06/08/2024 Telephone Gynecology/Obstetrics [facility] [address] [place] [address] Chrissy Wei CRNP [address] [place] [place] [address] Appointment Allergies Active Allergy Reactions Criticality Noted [...] available Ventricular Rate: 99 Atrial Rate: 99 ND Interval: 156 QRS Duration: 72 QT/QTc: 350/449 ms P-R-T Morton: 64 : 78 : 50 degrees LLQ [...] check. MyG sent. * Addendum Note - Haley Redding PA-C [...] Gynecology/Obstetrics [facility] [address] [place] [place] [phone] Haley Redding PA-C [address] [place] [address] Health Maintenance Due Date Last Done Comments Pneumococcal Vaccine: Pediatrics (0 to 5 Years) and At-Risk Patients (6 to 64 Years) (1 of 2 - PCV) 1993 Hepatitis B Vaccine (1 of 3 - 19+ 3-dose series) 2006 HPV/Co-Test 2017 Depression Screening 10/31/2019 10/31/2018 Cervical Cancer Screening 11/09/2022 Pap Smear 11/09/2022 11/09/2019, 10/24, 10/31/2018, Additional history exists COVID-19 Vaccine (1 - 2023- season) 2024 Influenza Vaccine (FLU [...] filedocumented as of this encounter Care Teams Results Technician Relationship Specialty Start Date End Date Navneet Alvarez OD [address] [facility] [place] [address] PCP - General Family Medicine 07/03/21 documented as of this encounter
--- OUTSIDE RECORDS SUMMARY | 2024-07-14 02:55 | External Medical Summary | Summary of Care ---
Author Name Unknown Organization [facility] Address [address] [place] [address] Phone [phone] Care Team Providers Care Discharge Rn Name Role Phone Navneet Alvarez Israel WELSH Primary Care Provider [phone] Reason for Visit * Reason Onset Date Comments Appointment 06/08/2024 Encounter Details Date Type Department Care Team (Late st Contact Info) Description 06/08/2024 Telephone Gynecology/Obstetrics [facility] [address] [place] [address] Chrissy Wei CRNP [address] [place] [address] Appointment Allergies Active Allergy Reactions Criticality Noted Date Comments Penicillins 11/29/2003 hives documented as of this encounter (statuses as of 06/08/2024) Medications Medication Sig Dispensed Refills Start Date [...] as of this encounter (statuses as of 06/08/2024) Active Problems Problem Noted Date Diagnosed Date [...] as of this encounter (statuses as of 06/08/2024) Immunizations Name Administration Dates Next Due TDAP [...] No 05/01/2024 Does the household have a [facility] source of income? (Household - for ages [...] 06/09/2024 3:30 PM EDT Nurse Only Gynecology/Obstetrics [facility] [address] [place] [address] Gw, Nurse Obgyn Injection [address] [place] [place] [address] Health Maintenance Due Date Last Done Comments [...] filedocumented as of this encounter Care Teams Discharge Rn Relationship Specialty Start Date End Date Navneet Alvarez OD [address] [facility] [place] [address] PCP - General Family Medicine 07/03/21 documented as of this encounter
--- OUTSIDE RECORDS SUMMARY | 2024-07-14 02:55 | External Medical Summary ---
Author Name Unknown Address Unknown Organization [id number]:LABORATORY [facility] - [address] [place] [address] Laboratory Report Ordering Provider Test Date Status JUDIE BEGUM 06/05/2024 13:23:33 Final Observation Date Value Abnormality Reference (Units ) Status Folic Acid 06/05/2024 13:23:33 6.3 >4.5 (ng/ mL) Final Performing Location [facility] - [address] [place] [address]
--- OUTSIDE RECORDS SUMMARY | 2024-07-14 02:55 | External Medical Summary | Summary of Care ---
Author Name Unknown Organization [facility] Address [address] [place] [address] Phone [phone] Care Team Providers Care Applications Coordinator Name Role Phone Navneet Alvarez Israel WELSH Primary Care Provider [phone] Reason for Visit * Reason Onset Date Comments Referral 06/05/2024 Encounter Details Date Type Department Care Team (Late st Contact Info) Description 06/05/2024 Telephone Senior Program Planner Obstetrics Maternal [facility], [place] [address] [place], [place] [id number] [place] Nurse Senior Program Planner [facility] [address] [place], [place] [id number] Referral Allergies Active Allergy Reactions Criticality Noted [...] for 45 MINUTE CONSULT SIMPLE MEDICAL WITH LEAD APPLIER, in time frame of next available or atpatient's earliest convenience at location [facility] with the indication of AMA (36), hx opioid use, limited care, hx cervical cone x2, tobacco use, ADHD, endometriosis, tachycardia. Please schedule anatomy within 2-3 weeks. Referring Provider: Haley Redding PA-C documented in this encounter Plan of Treatment Upcoming Encounters Date Type Department Care Team (Late st Contact Info) Description 06/08/2024 1:45 PM EDT Imaging Radiology [facility] 132 [facility] [place] [address] 06/08/2024 3:15 PM EDT Cardiac Studies Cardiac Studies, [facility] [address] [facility] [place] [address] Health Maintenance Due Date Last Done Comments [...] as of this encounter Care Teams Applications Coordinator Relationship Specialty Start Date End Date Navneet Alvarez OD Emmanuel[address] [facility] [place] [address] PCP - General Family Medicine 07/03/21 documented as of this encounter
--- OUTSIDE RECORDS SUMMARY | 2024-07-14 02:55 | External Medical Summary ---
Author Name Unknown Address Unknown Organization [id number]:LABORATORY [facility] - [facility] [address] [facility] [address] Laboratory Report Ordering Provider Test Date Status JUDIE BEGUM 06/05/2024 13:23:33 Final Observation Date Value Abnormality Reference (Units ) Status Retic, % (auto) 06/05/2024 13:23:33 2.69 Above high normal 0.80-1.90 (%) Final Reticulocytes, Absolute 06/05/2024 13:23:33 98.5 31.3-100.1 (K/uL) Final Reticulocyte fraction, immature 06/05/2024 13:23:33 21.0 Above high normal 2.5-20.6 (%) Final Reticulocyte HGB 06/05/2024 13:23:33 34.0 29.7-37.4 (pg) Final Performing Location LABORATORY [facility] - [address] [facility] [address]
--- OUTSIDE RECORDS SUMMARY | 2024-07-14 02:55 | External Medical Summary | Summary of Care ---
Author Name Unknown Organization [facility] Address [address] [place] [address] Phone [phone] Care Team Providers Care Facility Coordinator Name Role Phone Navneet Alvarez ANITHA Primary Care Provider Reason for Visit * Reason Comments Outpatient Testing Encounter Details Date Type Department Care Team (Late st Contact Info) Description 06/05/2024 1:10 PM EDT [facility] [address] [facility] [phone] [facility] [employer] 132 [place] [address] Antepartum multigravida of advanced maternal age; Supervision of high-risk , unspecified trimester Allergies Active Allergy Reactions Criticality Noted Date [...] Description 06/08/2024 8:40 AM EDT Laboratory Laboratory, [facility] [address] [place] [phone] [facility] [address] [place] [address] 06/08/2024 8:45 AM EDT Office Visit Gynecology/Obstetrics [facility] [address] [place] [address] Chrissy Wei CRNP [address] [place] [address] 06/08/2024 1:45 PM EDT Imaging Radiology [facility] 132 [facility] [place] [address] 06/08/2024 3:15 PM EDT Cardiac Studies [facility], [facility] [address] [facility] [place] [address] Pending Results Name Type Priority Associated Diagnoses [...] , unspecified trimester 06/05/2024 1:23 PM EDT ANEMIA CBC Lab Routine Antepartum multigravida of advanced maternal age 0906/05/2024 1:23 PM EDT DIFFERENTIAL, AUTOMATED Lab Routine Antepartum multigravida of advanced maternal age 0906/05/2024 1:23 PM EDT ANEMIA REFLEX CHEMISTRY HOLD Lab Routine Antepartum multigravida of advanced maternal age 0906/05/2024 1:23 PM EDT HEPATITIS C ANTIBODY Lab Routine Antepartum multigravida of advanced maternal age 0906/05/2024 1:23 PM EDT HEPATITIS C RNA ADD ON Lab Routine Antepartum multigravida of advanced maternal age 0906/05/2024 1:23 PM EDT SYPHILIS ANTIBODY SCREEN Lab Routine Antepartum multigravida of advanced maternal age 0906/05/2024 1:23 PM EDT Health Maintenance Due Date Last [...] Not on filedocumented as of this encounter Visit Diagnoses Diagnosis Antepartum multigravida of advanced maternal age Supervision of high-risk , unspecified trimester documented in this encounter Care Teams Facility Coordinator Relationship Specialty Start Date End Date Navneet Alvarez OD Emmanuel[address] Chacon [facility] [place] [address] PCP - General Family Medicine 07/03/21 documented as of this encounter
--- OUTSIDE RECORDS SUMMARY | 2024-07-14 02:56 | External Medical Summary | Summary of Care ---
Author Name Unknown Organization [facility] Address [address] [place] [address] Phone [phone] Care Team Providers Care Medical Imaging Technician Name Role Phone ScooterNavneet wiggins Israel WELSH Primary Care Provider [phone] Reason for Visit * Reason Onset Date Comments Appointment 05/22/2024 Encounter Details Date Type Department Care Team (Late st Contact Info) Description 05/22/2024 Telephone Gynecology/Obstetrics [facility] [address] [place] [address] Haley Redding PA-C [address] [place] [address] Appointment Allergies Active Allergy Reactions Criticality Noted Date Comments Penicillins 11/29/2003 hives documented as of this encounter (statuses as of 05/26/2024) Medications Medication Sig Dispensed Refills Start Date [...] as of this encounter (statuses as of 05/26/2024) Active Problems Problem Noted Date Diagnosed Date LLQ abdominal pain 08/22/2012 Endometriosis 07/01/2012 Irritable bowel syndrome Comments Yes documented as of this encounter (statuses as of 05/26/2024) Immunizations Name Administration Dates Next Due TDAP [...] ages 0-17 years) Not on file 05/01/2024 Comments Yes Sex and Gender Information Value Date Recorded Sex Assigned at Female 04/15/2024 2:07 PM EDT Gender Identity Female 04/15/2024 2:07 PM EDT Sexual Orientation Straight 05/01/2024 9: 50 PM EDT Job Start Date Occupation Industry Not on file Not on file Not on file documented as of this encounter Miscellaneous Notes * Telephone Encounter - Francine Winslow OSA - 05/26/2024 10:33 AM EDT LM on pt VM to call to schedule. * Telephone Encounter - Regine Early RN - 05/22/2024 12:19 PM EDT Pt missed her appt today. Needs to reschedule. Pt can be reached at [phone]. documented in this encounter Plan of Treatment Health Maintenance Due Date Last Done Comments [...] filedocumented as of this encounter Care Teams Medical Imaging Technician Relationship Specialty Start Date End Date Navneet Alvarez OD [address] [facility] [place] [address] PCP - General Family Medicine 07/03/21 documented as of this encounter
--- OUTSIDE RECORDS SUMMARY | 2024-07-14 02:56 | External Medical Summary ---
Author Name Unknown Address Unknown Organization K01:LABORATORY [facility] - [address] [place] [address] Laboratory Report Ordering Provider Test Date Status JUDIE BEGUM 06/05/2024 13:23:33 Final Observation Date Value Abnormality Reference (Units ) Status Rubella virus IgG Ab [Presence] in Serum 06/05/2024 13:23:33 Positive Abnormal Negative Final A positive result is consist ent with having had rubella virus or vaccination. Performing Location [facility] - [address] [place] [address]
--- OUTSIDE RECORDS SUMMARY | 2024-07-14 02:56 | External Medical Summary ---
Author Name Unknown Address Unknown Organization K0G:LABORATORY [facility] - [address] [place] [address] Laboratory Report Ordering Provider Test Date Status JUDIE BEGUM 06/05/2024 13:23:33 Final Observation Date Value Abnormality Reference (Units ) Status BUN 06/05/2024 13:23:33 3 Below low normal 6-20 (mg/dL) Final Creatinine 06/05/2024 13:23:33 0.6 0.5-1.0 (mg/dL) Final Glomerular filtration rate/1.73 sq M.predicted [Volume Rate/Area] in Serum, Plasma or Blood by Creatinine-based formula (CKD-EPI) 06/05/2024 13:23:33 >90 >=60 (mL/min) Final eGFR is calculated based on the CKD-EPI 2020 equation. Sodium 06/05/2024 13:23:33 136 135-146 (m mol/L) Final Potassium 06/05/2024 13:23:33 3.6 3.5-5.1 (m mol/L) Final Cl 06/05/2024 13:23:33 100 98-107 (mm ol/L) Final CO2 06/05/2024 13:23:33 23 22-32 (mmo l/L) Final Anion gap 06/05/2024 13:23:33 13 7-15 (mmol /L) Final Glucose 06/05/2024 13:23:33 101 70-120 (mg /dL) Final Albumin 06/05/2024 13:23:33 3.4 Below low normal 3.8 -5.0 (g/dL) Final AST (Aspartate aminotransferase) 06/05/2024 13:23:33 <10 Below low normal 10-35 (U/L) Final Alk Phos 06/05/2024 13:23:33 143 Above high normal 35 -130 (U/L) Final Bilirubin, Total 06/05/2024 13:23:33 <0.2 <=1 .2 (mg/dL) Final Calcium 06/05/2024 13:23:33 9.4 8.4-10.2 ( mg/dL) Final Protein 06/05/2024 13:23:33 6.2 6.0-8.3 (g /dL) Final ALT (Alanine aminotransferase) 06/05/2024 13:23:33 8 Below low normal 10-35 (U/L) Final [facility] Location [facility] [address] [place] [address]
--- OUTSIDE RECORDS SUMMARY | 2024-07-14 02:56 | External Medical Summary ---
Author Name Unknown Address Unknown Organization K01:[facility] [place] [address] [facility] [address] Laboratory Report Ordering Provider Test Date Status JUDIE BEGUM 06/05/2024 13:23:33 Final Observation Date Value Abnormality Reference (Units ) Status Treponema pallidum Ab [Presence] in Serum by Immunoassay 06/05/2024 13:23:33 Nonreactive Nonreactive Final No serologic evidence of syp hilis. No additional testing clinicially indicated at this time. Consider repeat testing in 2-4 weeks if acute or primary syphilis is suspected. Performing Location [facility] [place] [address] [place] [address]
--- OUTSIDE RECORDS SUMMARY | 2024-07-14 02:56 | External Medical Summary ---
Author Name Unknown Address Unknown Organization : Laboratory Report Ordering Provider Test Date Status JUDIE BEGUM 06/05/2024 13:23:33 Final Observation Date Value Abnormality Reference (Units ) Status NUMBER OF FETUSES? 06/05/2024 13:23:33 1 Final ADVANCED MATERNAL AGE? 06/05/2024 13:23:33 YES Final ABNORMAL LIBERTAD? 06/05/2024 13:23:33 NO Final ABNORMAL US? 06/05/2024 13:23:33 NOT GIVEN Final PERSONAL/FAM HISTORY? 06/05/2024 13:23:33 NOT GIVEN Final INTERPRETATION 06/05/2024 13:23:33 SEE BELOW Final This specimen showed an expe cted representation of
chromosome 21, 18, and 13 material. Results were
not analyzed or reported for microdeletions. See
'Limitations' below. TRISOMY 21 (T21) 06/05/2024 13:23:33 Negative Final TRISOMY 18 (T18) 06/05/2024 13:23:33 Negative Final TRISOMY 13 (T13) 06/05/2024 13:23:33 Negative Final Y CHROMOSOME 06/05/2024 13:23:33 Detected Final Y CHR. INTERPRETATION 06/05/2024 13:23:33 SEE BELOW Final Consistent with a male fetus . SEX CHROMOSOME 06/05/2024 13:23:33 No aneuploidy Final SEX CHROMOSOME INTERP 06/05/2024 13:23:33 SEE BELOW Final No apparent abnormality was detected. See
'Limitations' below. MICRODELETION 06/05/2024 13:23:33 Opted Out Final MICRODELETION INTERP 06/05/2024 13:23:33 SEE BELOW Final Results were not analyzed or reported for
microdeletions. GESTATIONAL AGE (IN WEEKS) 06/05/2024 13:23:33 30 Final GESTATIONAL AGE (IN DAYS) 06/05/2024 13:23:33 2 Final FRACTION 06/05/2024 13:23:33 48.00% Final LABORATORY COMMENTS 06/05/2024 13:23:33 SEE BELOW Final Laboratory testing supervise d and results
monitored by Fermin Devi, Ph.D., FAC, [facility],
[facility]. LIMITATIONS 06/05/2024 13:23:33 SEE BELOW Final QNatal(R) Advanced is a cell -free DNA screening
test that screens for increased risk of certain
chromosomal abnormalities that may cause
defects, including Trisomy 21 (Down
syndrome), Trisomy 18, Trisomy 13, and certain sex
chromosome abnormalities (i.e., 45,X, 47,XXY,
47,XXX, and 47,XYY), as well as sex. In
addition, if selected as an option, QNatal(R)
Advanced can screen for certain microdeletions
(i.e., 22q, 5p, 1p36, 15q, 11q, 8q, and 4p) that
may cause defects. This test does not assess
the risk of abnormalities such as neural
tube defects or ventral wall defects and should
not be considered in isolation from other clinical
findings and laboratory test results.
QNatal(R) Advanced has been validated in nixon
pregnancies for the trisomies and sex chromosome
abnormalities listed above, as well as for
microdeletions, and for the determination of
sex. Sex chromosome aneuploidy analysis is only
performed in nixon pregnancies. This screening
test has also been validated in twin pregnancies
for the trisomies listed above and for
microdeletions, but not for the sex chromosome
abnormalities due to limited data. This screening
test has not been validated in higher order
pregnancies (more than two) because limited data
is available. Sex chromosomal aneuploidy results
issued for pregnancies confirmed to be of multiple
gestations are not valid and should be
disregarded.
Microdeletion screening is limited to the
specified microdeletion regions (see
'Methodology'). The Y chromosome is analyzed for
the determination of sex. The sensitivity
and specificity of sex determination
analysis may be less than that of the Trisomy 21,
18, and 13 analysis and this determination can be
confounded by vanishing twin syndrome in
pregnancies that were originally multiple
gestation pregnancies. It should be noted that
QNatal(R) Advanced is a quantitative analysis of
maternal and placental cfDNA. As a result, the
accuracy of screening results may be affected by
the presence of chromosome abnormalities or
microdeletions that are maternal or confined
placental in origin. SPECIFICATIONS 06/05/2024 13:23:33 SEE BELOW Final Sensitivity Specificity
T21 >99.9% >99.9%
T18 >99.9% >99.9%
T13 >99.9% >99.9%
Accuracy
Y >99.9%
Performance of the QNatal Advanced
laboratory-developed test (LDT) has been
determined based on internal analytical
assessment. METHODOLOGY 06/05/2024 13:23:33 SEE BELOW Final Circulating cell-free (cf) D NA was isolated from
plasma followed by detection on a massively
parallel sequencing platform. Bioinformatic
analysis was performed to determine the
representation of chromosomes 21, 18, 13, X and Y
in circulating cell-free DNA. The representation
of sequences from the critical regions involved in
1p36 microdeletion syndrome (1p36),
Puentes-Hirschhorn syndrome (4p), Cri-du-chat
syndrome (5p), Gina-Giedion syndrome (8q),
Abhi syndrome (11q), Prader Willi
syndrome/Angelman syndrome (15q), and DiGeorge
syndrome (22q) is evaluated for the detection of
microdeletions if requested. Performance
characteristics refer to the analytical
performance of this screening test. This screening
test is performed pursuant to a license agreement
with [employer].
QNatal Advanced is a laboratory developed test
that has been developed and validated, pursuant to
the Clinical Laboratory Improvements Amendments of
1988 (CLIA), and as such it has not been reviewed
by FDA.
Test performed by [facility]
[address],
[place] [address]

Senior Librarian: Heidy Phan MD,PHD,MARC
Test Reported by [facility],
[place],
[address] [place], [place]
oLy Oglesby M.D., Ph.D., Director of Laboratories
, CLIA [id number] Performing Location
--- OUTSIDE RECORDS SUMMARY | 2024-07-14 02:56 | External Medical Summary | Summary of Care ---
Author Name Unknown Organization [facility] Address [address] [place] [address] Phone [phone] Care Team Providers Care Drug Safety Assistant Name Role Phone ScooterNavneet wiggins Israel WELSH Primary Care Provider [phone] Encounter Details Date Type Department Care Team (Late st Contact Info) Description 05/06/2024 Telephone Gynecology/Obstetrics [facility] [address] [place] [address] Tiarra Marr MD [address] [place] [address] Allergies Active Allergy Reactions Criticality Noted Date Comments Penicillins 11/29/2003 hives documented as of this encounter (statuses as of 05/07/2024) Medications No known medicationsdocumented as of this encounter (statuses as of 05/07/2024) Active Problems Problem Noted Date Diagnosed Date LLQ abdominal pain 08/22/2012 Endometriosis 07/01/2012 Irritable bowel syndrome documented as of this encounter (statuses as of 05/07/2024) Immunizations Name Administration Dates Next Due TDAP (age 10 and older)(Boostrix) 10/28/2012 TDAP, Age 7 and older, IM (Adacel) 12/23/2020 documented as of this encounter Social History Tobacco Use Types Packs/Day Years Used Date Smoking Tobacco: Every Day Cigarettes Smokeless Tobacco: Never Comments:6-7 cigs/day Alcohol Use Standard Drinks/Week Comments Yes 0 (1 standard drink = 0.6 oz [...] ages 0-17 years) Not on file 05/01/2024 Sex and Gender Information Value Date Recorded Sex Assigned at Female 04/15/2024 2:07 PM EDT Gender Identity Female 04/15/2024 2:07 PM EDT Sexual Orientation Straight 05/01/2024 9: 50 PM EDT Job Start Date Occupation Industry Not on file Not on file Not on file documented as of this encounter Miscellaneous Notes * Telephone Encounter - Regine Early RN - 05/07/2024 3:52 PM EDT Pt called back and intake completed. * Telephone Encounter - Regine Early RN - 05/06/2024 10:16 AM EDT Attempted to call pt to complete intake. NA. Voicemail left to call office. documented in this encounter Plan of Treatment Upcoming Encounters Date Type Department Care Team (Late st Contact Info) Description 05/11/2024 3:00 PM EDT Office Visit Gynecology/Obstetrics [address] [place] [address] Anh Cisneros CRNP [address] [place] [address] Health Maintenance Due Date Last Done Comments Pneumococcal Vaccine: Pediatrics (0 to 5 Years) and At-Risk Patients (6 to 64 Years) (1 of 2 - PCV) 1993 Hepatitis B Vaccine (1 of 3 - 19+ 3-dose series) 2006 HPV/Co-Test 2017 Depression Screening 10/31/2019 10/31/2018 Cervical Cancer Screening 11/09/2022 Pap Smear 11/09/2022 11/09/2019, 10/24, 10/31/2018, Additional history exists COVID-19 Vaccine ( - 2022- season) 2023 Influenza Vaccine (FLU shot) (#1) 2024 DTaP,Tdap,and Td Vaccines (3 - Td or Tdap) 12/23/2030 12/23/2020, 10/28/2012 HPV (Gardasil) Vaccine Aged Out No lo nger eligible based on patient's age to complete this topic MENINGOCOCCAL (MENACTRA/MENVEO) Aged Out No longer eligible based on patient's age to complete this topic documented as of this encounter Medical Devices Not on filedocumented as of this encounter Care Teams Drug Safety Assistant Relationship Specialty Start Date End Date Navneet Alvarez OD Emmanuel[address] [facility] [place] [address] PCP - General Family Medicine 07/03/21 documented as of this encounter
--- OUTSIDE RECORDS SUMMARY | 2024-07-14 02:56 | External Medical Summary | Summary of Care ---
Author Name Unknown Organization [facility] Address [address] [place] [address] Phone [phone] Care Team Providers Care Rubber Calender Helper Name Role Phone Kim Navneet Israel WELSH Primary Care Provider [phone] Encounter Details Date Type Department Care Team (Late st Contact Info) Description 05/26/2024 Telephone Gynecology/Obstetrics [facility] [address] [place] [address] Haley Redding PA-C [address] [facility] [place] [address] Allergies Active Allergy Reactions Criticality [...] Telephone Encounter - Yudi Fleming LPN - 05/26/2024 3:39 PM EDT Received pt records from [place] was 01/09/24 dating 9w0d with lindsey of 08/13/24 Pap: 01/09/24 normal G and C 01/09/24: normal No other labs were done with records sent Looks like pt only had 1 visit with 's documented in this encounter Plan of Treatment [...] Additional history exists COVID-19 Vaccine (1 - 2022- season) 2024 Influenza Vaccine (FLU shot) (#1) [...] filedocumented as of this encounter Care Teams Rubber Calender Helper Relationship Specialty Start Date End Date Navneet Alvarez OD [address] [place] [address] PCP - General Family Medicine 07/03/21 documented as of this encounter
--- OUTSIDE RECORDS SUMMARY | 2024-07-14 02:56 | External Medical Summary ---
Author Name Unknown Address Unknown Organization K01:LABORATORY [facility] - [address] [place] [address] Laboratory Report Ordering Provider Test Date Status JUDIE BEGUM 06/05/2024 12:22:36 Final Normal: <150 mg/ g creatinine
High: 150-500 mg/g creatinine
Very High: >500 mg/g creatinine
Nephrotic: >3000 mg/g creatinine Observation Date Value Abnormality Reference (Units ) Status Protein/Creatinine [Ratio] in Urine 06/05/2024 12:22:36 <231 Above high normal <150 (mg/g ) Final Protein, Urine 06/05/2024 12:22:36 <6 (mg/dL) Final Creatinine, Urine 06/05/2024 12:22:36 26 (mg/dL) Final Performing Location LABORATORY [facility] - [address] [place] [address]
--- OUTSIDE RECORDS SUMMARY | 2024-07-14 02:56 | External Medical Summary | Summary of Care ---
Author Name Unknown Organization [facility] Address [address] [place] [address] Phone [phone] Care Team Providers Care Automotive Sales Specialist Name Role Phone ScooterNavneet wiggins [place] WEL[place] Primary Care Provider [phone] Encounter Details Date Type Department Care Team (Late st Contact Info) Description 05/11/2024 Telephone Gynecology/Obstetrics [facility] [address] [place] [address] Anh Cisneros CRNP [address] [facility] [place], [place] [id number] Allergies Active Allergy Reactions Criticality Noted Date Comments Penicillins 11/29/2003 hives documented as of this encounter (statuses as of 05/11/2024) Medications Medication Sig Dispensed Refills Start Date [...] as of this encounter (statuses as of 05/11/2024) Active Problems Problem Noted Date Diagnosed Date LLQ abdominal pain 08/22/2012 Endometriosis 07/01/2012 Irritable bowel syndrome Comments Yes documented as of this encounter (statuses as of 05/11/2024) Immunizations Name Administration Dates Next Due TDAP [...] Telephone Encounter - Sonia Mcgrath RN - 05/11/2024 2:22 PM EDT Patient called in r/e appt today in office. States she is sick and tested + yesterday for COVID. Asking if she should come to her appt or not. Advised patient to reschedule. Patient agreeable. Scheduled for next week. Advised if she has any concerns, to contact office or [facility] . She verbalized understanding documented in this encounter Plan of Treatment Upcoming Encounters Date Type Department Care Team (Late st Contact Info) Description 05/11/2024 3:00 PM EDT Office Visit Gynecology/Obstetrics [address] [place] [address] Anh Cisneros CRNP [address] [place] [address] 05/22/2024 10:30 AM EDT [facility] [address] [place] [address] Haley Redding PA-C [address] [place] [address] Health Maintenance Due Date Last Done Comments Pneumococcal Vaccine: Pediatrics (0 to 5 Years) and At-Risk Patients (6 to 64 Years) (1 of 2 - PCV) 1993 Hepatitis B Vaccine (1 of 3 - 19+ 3-dose series) 2006 HPV/Co-Test 2017 Depression Screening 10/31/2019 10/31/2018 Cervical Cancer Screening 11/09/2022 Pap Smear 11/09/2022 11/09/2019, 10/24, 10/31/2018, Additional history exists COVID-19 Vaccine ( - 2022-24 season) 2023 Influenza Vaccine (FLU shot) (#1) [...] filedocumented as of this encounter Care Teams Automotive Sales Specialist Relationship Specialty Start Date End Date [place] [address] PCP - General Family Medicine 07/03/21 documented as of this encounter
--- OUTSIDE RECORDS SUMMARY | 2024-07-14 02:56 | External Medical Summary | Summary of Care ---
Author Name Unknown Organization [facility] Address [address] [place] [address] Phone [phone] Care Team Providers Care Vice President Risk Management Name Role Phone ScooterNavneet wiggins [place] WEL[place] Primary Care Provider [phone] Reason for Visit * Reason Onset Date Comments Appointment 05/22/2024 Encounter Details Date Type Department Care Team (Late st Contact Info) Description 05/22/2024 Telephone Gynecology/Obstetrics [facility] [address] [place] [address] Haley Redding PA-C [address] [place] [address] Appointment Allergies Active Allergy Reactions Criticality Noted Date Comments Penicillins 11/29/2003 hives documented as of this encounter (statuses as of 05/22/2024) Medications Medication Sig Dispensed Refills Start Date [...] as of this encounter (statuses as of 05/22/2024) Active Problems Problem Noted Date Diagnosed Date LLQ abdominal pain 08/22/2012 Endometriosis 07/01/2012 Irritable bowel syndrome Comments Yes documented as of this encounter (statuses as of 05/22/2024) Immunizations Name Administration Dates Next Due TDAP [...] to reschedule. Pt can be reached at [phone]. documented in this encounter Plan of Treatment [...] 2023 Influenza Vaccine (FLU shot) (#1) 2024 DTap/Tdap [...] filedocumented as of this encounter Care Teams Vice President Risk Management Relationship Specialty Start Date End Date Navneet Alvarez OD [address] [facility] [place] [address] PCP - General Family Medicine 07/03/21 documented as of this encounter
--- OUTSIDE RECORDS SUMMARY | 2024-07-14 02:56 | External Medical Summary ---
Author Name Unknown Address Unknown Organization [id number]:LABORATORY [facility] - [address] [place] [address] Laboratory Report Ordering Provider Test Date Status JUDIE BEGUM 06/05/2024 13:23:33 Final Observation Date Value Abnormality Reference (Units ) Status TSH 06/05/2024 13:23:33 1.37 0.27-4.20 (uIU/mL) Final Performing Location [facility] [address] [facility] [address]
--- OUTSIDE RECORDS SUMMARY | 2024-07-14 02:56 | External Medical Summary ---
Author Name Unknown Address Unknown Organization K01:[facility] - [address] [place] [address] Laboratory Report Ordering Provider Test Date Status JUDIE BEGUM 06/05/2024 13:23:33 Final Observation Date Value Abnormality Reference (Units ) Status Hep C Ab 06/05/2024 13:23:33 Negative Negative Final Further HCV quantitative dinora ting not performed per protocol. Performing Location [facility] - [address] [place] [address]
--- OUTSIDE RECORDS SUMMARY | 2024-07-14 02:56 | External Medical Summary ---
Author Name Unknown Address Unknown Organization [id number]:LABORATORY [facility] [place] - [address] [place] [address] Laboratory Report Ordering Provider Test Date Status JUDIE BEGUM 06/05/2024 13:23:33 Final Observation Date Value Abnormality Reference (Units ) Status Vitamin B12 06/05/2024 13:23:33 <150 Below low normal 2 32-1245 (pg/mL) Final Performing Location [facility] - [address] [place] [address]
--- OUTSIDE RECORDS SUMMARY | 2024-07-14 02:56 | External Medical Summary ---
Author Name Unknown Address Unknown Organization K0G:LABORATORY [facility] - [address] [place] [address] Laboratory Report Ordering Provider Test Date Status JUDIE BEGUM 06/05/2024 13:23:33 Final Observation Date Value Abnormality Reference (Units ) Status SYNC LEUKOCYTES IN BLOOD BY AUTOMATED COUNT 06/05/2024 13:23:33 13.59 Above high normal 4.00-10.80 (K/uL) Final Segs 06/05/2024 13:23:33 74.4 40.0-75.0 (%) Final Lymphs % 06/05/2024 13:23:33 19.4 18.0-42.0 (%) Final Monos 06/05/2024 13:23:33 4.9 1.0-11.0 (%) Final Eosinophils 06/05/2024 13:23:33 1.1 0.0-6.0 (%) Final Basos 06/05/2024 13:23:33 0.2 0.0-2.0 (%) Final Absolute Segs 06/05/2024 13:23:33 10.11 Above high normal 1.80-7.70 (K/uL) Final Lymphs, absolute 06/05/2024 13:23:33 2.64 1.00-4.80 (K/ul) Final Monos, Abs 06/05/2024 13:23:33 0.66 0.00-1.10 (K/uL) Final Eos, Abs 06/05/2024 13:23:33 0.15 0.00-0.70 (K/uL) Final Basos, Abs 06/05/2024 13:23:33 0.03 0.00-0.20 (K/uL) Final Performing Location LABORATORY [facility] 0 - [address] [place] [address]
--- OUTSIDE RECORDS SUMMARY | 2024-07-14 02:56 | External Medical Summary ---
Author Name Unknown Address Unknown Organization K01:LABORATORY [facility] - [address] [place] [address] Laboratory Report Ordering Provider Test Date Status JUDIE BEGUM 06/05/2024 13:23:33 Final Observation Date Value Abnormality Reference (Units ) Status Ferritin 06/05/2024 13:23:33 13 13-150 (ng /mL) Final Performing Location [facility] - [address] [place] [address]
--- OUTSIDE RECORDS SUMMARY | 2024-07-14 02:56 | External Medical Summary ---
Author Name Unknown Address Unknown Organization K0G:LABORATORY [facility] - [address] [place] [address] Laboratory Report Ordering Provider Test Date Status JUDIE BEGUM 06/05/2024 13:23:33 Final Observation Date Value Abnormality Reference (Units ) Status WBC, Total 06/05/2024 13:23:33 13.59 Above high normal 4 .00-10.80 (K/uL) Final RBC 06/05/2024 13:23:33 3.63 3.85-5.15 (M/uL) Final Hemoglobin 06/05/2024 13:23:33 11.2 Below low normal 12 .0-15.3 (g/dL) Final Anemia reflex testing trigge rs on a HGB < 12.0 for Females and HGB < 13.0 for Males in accordance with the WHO Anemia Guidelines
Anemia reflex testing triggers on a HGB < 12.0 for Females and HGB < 13.0 for Males in accordance with the WHO Anemia Guidelines HCT 06/05/2024 13:23:33 33.3 Below low normal 36. 0-45.2 (%) Final MCV 06/05/2024 13:23:33 91.7 81.5-97.5 (fL) Final MCH 06/05/2024 13:23:33 30.9 27.0-34.0 (pg) Final MCHC 06/05/2024 13:23:33 33.6 32.0-36.0 (g/dL) Final RDW 06/05/2024 13:23:33 13.0 11.5-15.5 (%) Final Platelets 06/05/2024 13:23:33 432 Above high normal 14 0-400 (K/uL) Final MPV 06/05/2024 13:23:33 9.0 6.6-11.1 ( fL) Final Performing Location LABORATORY [facility] 0 - [address] [place] [address]
--- OUTSIDE RECORDS SUMMARY | 2024-07-14 02:56 | External Medical Summary | Summary of Care ---
Author Name Unknown Organization [facility] Address [address] [place] [address] Phone [phone] Care Team Providers Care Sap Security Architect Name Role Phone ScooterNavneet wiggins [place] WEL[place] Primary Care Provider [phone] Reason for Visit * Reason Onset Date Comments Appointment 05/22/2024 Encounter Details Date Type Department Care Team (Late st Contact Info) Description 05/22/2024 Telephone Gynecology/Obstetrics [facility] [address] [place] [address] Haley Redding PA-C [address] [place] [address] Appointment Allergies Active Allergy Reactions Criticality Noted Date Comments Penicillins 11/29/2003 hives documented as of this encounter (statuses as of 06/02/2024) Medications Medication Sig Dispensed Refills Start Date [...] as of this encounter (statuses as of 06/02/2024) Active Problems Problem Noted Date Diagnosed Date LLQ abdominal pain 08/22/2012 Endometriosis 07/01/2012 Irritable bowel syndrome Comments Yes documented as of this encounter (statuses as of 06/02/2024) Immunizations Name Administration Dates Next Due TDAP [...] Telephone Encounter - Francine Winslow OSA - 06/02/2024 7:53 AM EDT Pt scheduled 06/05 * Telephone Encounter - Francine Winslow OSA - 05/26/2024 10:33 AM EDT LM on pt VM to call to schedule. * Telephone Encounter - Regine Early RN - 05/22/2024 12:19 PM EDT Pt missed her appt today. Needs to reschedule. Pt can be reached at [phone]. documented in this encounter Plan of Treatment Upcoming Encounters Date Type Department Care Team (Late st Contact Info) Description 06/05/2024 11:30 AM EDT Office Visit Gynecology/Obstetrics [facility] [address] [place] [address] Haley Redding PA-C [address] [place] [address] Health Maintenance Due Date Last Done Comments [...] filedocumented as of this encounter Care Teams Sap Security Architect Relationship Specialty Start Date End Date Navneet Alvarez OD [place] [facility] [place] [address] PCP - General Family Medicine 07/03/21 documented as of this encounter
--- OUTSIDE RECORDS SUMMARY | 2024-07-14 02:56 | External Medical Summary ---
Author Name Unknown Address Unknown Organization K01:LABORATORY [facility] - [address] [place] [address] Laboratory Report Ordering Provider Test Date Status SHYJUDIE 06/05/2024 13:23:33 Final Observation Date Value Abnormality Reference (Units ) Status Iron 06/05/2024 13:23:33 83 33-151 (ug/dL) Final Iron-binding capacity 06/05/2024 13:23:33 597 Above high normal 250-425 (ug/dL) Final Transferrin Sat % 06/05/2024 13:23:33 14 Below low normal 15-55 (%) Final Performing Location LABORATORY [facility] - [address] [place] [address]
--- OUTSIDE RECORDS SUMMARY | 2024-07-14 02:56 | External Medical Summary | Summary of Care ---
Author Name Unknown Organization [facility] Address [address] [place] [address] Phone [phone] Care Team Providers Care Respiratory Technician Name Role Phone ScooterNavneet wiggins [place] WEL[place] Primary Care Provider [phone] Encounter Details Date Type Department Care Team (Late st Contact Info) Description 05/07/2024 3:00 PM EDT Nurse Only Gynecology/Obstetrics [facility] [address] [facility] [place] [address] Gw, Nurse Corporate Travel Expert [facility] [address] [place] [address] Allergies Active Allergy Reactions Criticality Noted Date Comments Penicillins 11/29/2003 hives documented as of this encounter (statuses as of 05/07/2024) Medications Medication Sig Dispensed Refills Start Date End Date Status 28-0.8 MG Oral Tablet Take by mouth. Active Amphetamine-Dextroa mphet ER 25 MG Oral Capsule Extended Release 24 Hour (Adderall XR) Take 1 Capsule by mouth in the morning. Active Amphetamine-Dextroa mphetamine 10 MG Oral Tablet (Adderall) TAKE ONE TABLET BY MOUTH AT NOON 04/06/2024 Active Norethin Gómez-Eth Estrad-FE 1-20 MG-MCG Oral Tablet (Loestrin Fe 10/12)Indications:Ge neral counselling and advice on contraception Take 1 Tablet by mouth in the morning. 28 Tablet 1 08/10/2022 05/07/2024 Discontinued (Medication List Clean Up) documented as of this encounter (statuses as [...] Tobacco: Every Day Cigarettes Smokeless Tobacco: Never Tobacco Cessation:Ready to Q uit: Not Asked; Counseling Given: Not Answered Comments:6-7 cigs/day Alcohol Use Standard Drinks/Week Comments [...] on file documented as of this encounter Nursing Notes * Ashley Polo LPN - 05/07/2024 3:16 PM EDT Phone intake completed today Pt is transferring care from [facility]-Advised pt to have records faxed before appointment or hand carry with her. Pt states she had dating [place] but has not had anatomy scan. Has not completed any genetic testing Hx abnormal pap- pt reports colpo and leep Pt reports she stopped Adderall after finding out she was . documented in this encounter Plan of Treatment Upcoming Encounters Date Type Department Care Team (Late st Contact Info) Description 05/11/2024 3:00 PM EDT Office Visit Gynecology/Obstetrics [address] [place] [address] Anh Cisneros CRNP [address] [place] [address] Health Maintenance Due Date Last Done Comments Pneumococcal Vaccine: Pediatrics (0 to 5 Years) and At-Risk Patients (6 to 64 Years) (1 of 2 - PCV) 1993 Hepatitis B Vaccine (1 of 3 - 19+ 3-dose series) 2006 HPV/Co-Test 2017 Depression Screening 10/31/2019 10/31/2018 Cervical Cancer Screening 11/09/2022 Pap Smear 11/09/2022 11/09/2019, 10/24, 10/31/2018, Additional history exists COVID-19 Vaccine (1 - 2022-24 season) 2023 Influenza Vaccine (FLU [...] as of this encounter Visit Diagnoses Diagnosis Early stage of - Primary documented in this encounter Care Teams Respiratory Technician Relationship Specialty Start Date End Date Navneet Alvarez OD [address] [facility] [place] [address] PCP - General Family Medicine 07/03/21 documented as of this encounter
--- NOTE | 2024-07-14 03:00 | Ultrasound Report ---
Exam(s): US VENOUS BILATERAL LOWER EXTREMITIES EXAM: US Duplex Bilateral Lower Extremities Veins CLINICAL HISTORY: Reason for exam: redness, edema of bilateral legs. TECHNIQUE: Real-time duplex ultrasound scan of the bilateral lower extremity veins integrating B-mode two-dimensional vascular structure, Doppler spectral analysis, color flow Doppler imaging and compression. COMPARISON: No relevant prior studies available. FINDINGS: Right deep veins: No DVT in the right common femoral, femoral, proximal deep femoral or popliteal veins. The veins demonstrate normal color flow, are normally compressible, with normal phasic flow and/or augmentation response. Right superficial veins: No thrombus in the visualized right great saphenous vein. Left deep veins: No DVT in the left common femoral, femoral, proximal deep femoral or popliteal veins. The veins demonstrate normal color flow, are normally compressible, with normal phasic flow and/or augmentation response. Left superficial veins: No thrombus in the visualized left great saphenous vein. Soft tissues: There is soft tissue edema. There are bilateral inguinal lymph nodes noted.. IMPRESSION: No ultrasound evidence of deep venous thrombosis in the lower extremities. Electronically signed by: Eliseo Hernández MD 07/14/24 02:59 AM
[2024-07-14] MEDS: cefTRIAXone SODIUM 2,000 MG/50 ML BAG IV SCH (04:18)
--- NOTE | 2024-07-14 06:33 | XRay Report ---
XR chest 1V portable CLINICAL HISTORY: leg swelling COMPARISON STUDY: Chest radiograph May 25, 2015. FINDINGS: Lung volumes are normal. Mild bibasilar airspace opacities are present. There is no pneumot horax or pleural effusion. Cardiac size is normal. Mediastinal contours are normal. There is no evide nce for pulmonary edema. IMPRESSION: Mild bibasilar opacities suggestive of an infectious process. Radiographic follow-up to ensure resolution is recommended. ACT 112: Negative or not required by law. Electronically signed by: Isaiah Brown M.D. 07/14/2024 6:32 AM
[2024-07-14] MEDS ORDERED: NON-FORMULARY MEDICATION (Iron,Carbonyl-Vitamin C [Vitron-C] 65 mg iron- 125 mg Tablet,Del PO SCH (09:00)
[2024-07-14] MEDS: FERROUS SULFATE 325 MG TAB PO SCH (09:02)
[2024-07-14] MEDS: ASCORBIC ACID 500 MG TAB PO SCH (09:02)
[2024-07-14] MEDS: PRENATAL VITAMIN 1 TAB PO SCH (09:02)
[2024-07-14] MEDS ORDERED: diphenhydrAMINE Capsule 25 MG CAP PO PRN (09:52)
[2024-07-14] MEDS: diphenhydrAMINE Capsule 25 MG CAP PO PRN (10:23)
[2024-07-14] MEDS: NICOTINE 7 MG/24 HR TDSY TD SCH (11:07)
--- NOTE | 2024-07-14 13:27 | Hospitalist Progress Note ---
Date of Service July 14, 2024 Assessment & Plan (1) Bilateral lower extremity edema: (2) Redness and swelling of lower leg: Plan: Suspect possible mild cellulitis Plan Explained to patient that suspect the her redness of her lower extremities is most likely due to her edema caused by her . Much lower suspicion for cellulitis. Out of a high level of caution we will treat with a short course of oral Keflex Discussed wearing compression stockings Communication with attending physician, encourage edema management, recommendations given. Okay for discharge from medical standpoint. Admission and Anticipated Discharge Date Admission Date: July 14, 2024 Subjective Patient offers no complaints other than continued swelling of her lower extremity Physical Exam Physical Exam: Constitutional: Alert HEENT: Mucous membranes moist. Lungs: Clear to auscultation, decreased, no wheezes rales or rhonchi CV: S1-S2, regular Abdomen: Soft, nontender, nondistended Extremities: Bilateral 2-3+ pitting lower extremity edema with bilateral lower extremity redness that is symmetrical and circumferential, minimal warmth, no significant tenderness Neuro: No focal deficits Psych: Cooperative, normal mood Results & Data Results & Data Vital Signs (Past 12 Hours) Vital Signs Temp Pulse Pulse Resp BP BP Pulse Ox 07/14/24 11:00 36.7 C 82 18 132/81 100 07/14/24 07:30 18 07/14/24 07:30 36.5 C 18 07/14/24 07:30 36.5 C 68 18 126/83 07/14/24 06:03 36.5 C 71 16 122/63 07/14/24 02:05 18 07/14/24 02:05 36.5 C 18 07/14/24 01:38 82 18 137/86 O2 Del Method 07/14/24 11:00 Room Air 07/14/24 07:30 07/14/24 07:30 07/14/24 07:30 07/14/24 06:03 07/14/24 02:05 07/14/24 02:05 07/14/24 01:38 Diagnostic Findings Reviewed imaging, laboratory and diagnostic studies. Pertinent findings as below. Ultrasound lower extremity negative for DVT WBCs 9.4
[2024-07-14] MEDS: ACETAMINOPHEN 325 MG TAB PO PRN (17:56)
[2024-07-14] MEDS: CALCIUM CARBONATE 500 MG CHEWABLE TAB PO PRN (18:08)
[2024-07-14] MEDS ORDERED: CALCIUM CARBONATE 500 MG CHEWABLE TAB PO PRN (18:13)
--- NOTE | 2024-07-15 11:59 | Obstetrical Progress Note ---
Date of Service July 15, 2024 Assessment & Plan Admission and Anticipated Discharge Date Admission Date: July 14, 2024 Subjective abdomen soft no contractions good movement bp is good extremities some redness mild pitting edema on antibiotics Results & Data Vital Signs (Past 12 Hours) Vital Signs Temp Pulse Resp BP Pulse Ox O2 Del Method 07/15/24 07:40 36.6 C 81 20 124/74 97 Room Air 07/15/24 04:16 36.5 C 75 18 132/83 96 Room Air 07/15/24 01:00 36.6 C 76 18 133/78 97 Room Air
[2024-07-15 12:59] VITALS: BP 144/84; PULSE 91; RESP 18; TEMP 98.1; O2SAT 100
--- OUTSIDE RECORDS SUMMARY | 2024-07-16 00:05 | External Medical Summary | Summary of Care ---
Author Name Unknown Organization [facility] Address [address] [place] [address] Phone [phone] Care Team Providers Care Waffle Machine Operator Name Role Phone Navneet Alvarez Israel WELSH Primary Care Provider [phone] Reason for Visit * Reason Onset Date Comments Referral 06/05/2024 Encounter Details Date Type Department Care Team (Late st Contact Info) Description 06/05/2024 Telephone Journalism Teacher Obstetrics Maternal Medicine, [place] [address], [place] [phone] [place] Nurse Journalism Teacher [facility] [address], [place] [phone] Referral Allergies Active Allergy Reactions Criticality Noted Date Comments Penicillins 11/29/2003 hives documented as of this encounter (statuses as of 07/15/2024) Medications Medication Sig Dispensed Refills Start Date [...] as of this encounter (statuses as of 07/15/2024) Active Problems Problem Noted Date Diagnosed Date [...] available Ventricular Rate: 99 Atrial Rate: 99 SC Interval: 156 QRS Duration: 72 QT/QTc: 350/449 ms P-R-T [place]: 64 : 78 : 50 degrees LLQ abdominal pain 08/22/2012 Endometriosis 07/01/2012 Irritable bowel syndrome Estimated Date of Delivery Comme nts Yes 08/12/2024 Based on last me nstrual period of 11/06/2023 documented as of this encounter (statuses as of 07/15/2024) Immunizations Name Administration Dates Next Due RSV [...] money to get more. Never true 05/01/2024 [place] Depression Scale Answer Date Recorded [place] Depression Scale Total 11 06/25/2024 The thought of harming myself has occurred to me . Never 06/25/2024 Childcare Answer Date Recorded Do you feel [...] No 05/01/2024 Does the household have a [facility] [place] of income? (Household - for [...] encounter Miscellaneous Notes * Telephone Encounter - Eitan, Regine E, CCMA - 07/15/2024 9:17 AM EDT Estimated Date of Delivery: 08/12/24 Please schedule for 45 MINUTE CONSULT SIMPLE MEDICAL WITH ASSEMBLY LINE BRAZER, in time frame of WITHIN 1 WEEK at location [facility] with the indication of AMA (36), hx opioid use, limited care, hx cervical cone x2, tobacco use, ADHD, endometriosis, tachycardia. Patient now ruled in for new indication of GHTN. Please schedule anatomy within 1-2 weeks. Referring Provider: Haley Redding PA-C * Telephone Encounter - Lou Tariq OSA - 06/11/2024 8:05 AM EDT multiple unsuccessful attempts to contact pt, sent letter * Telephone Encounter - Lou Tariq OSA - 06/10/2024 9:24 AM EDT Phone call to patient. Left message on [employer] voice mail. [facility] * Telephone Encounter - Lou Tariq OSA - 06/08/2024 8:58 AM EDT Tried call pt. No answer, could not leave voicemail. Sent MyG message. * Telephone Encounter - Regine Laird CCMA - 06/05/2024 2:01 PM EDT Estimated Date of Delivery: 08/12/24 Please schedule for 45 MINUTE CONSULT SIMPLE MEDICAL WITH ASSEMBLY LINE BRAZER, in time frame of next available or atpatient's earliest convenience at location [place] with the indication of AMA (36), hx opioid use, limited care, hx cervical cone x2, tobacco use, ADHD, endometriosis, tachycardia. Please schedule anatomy within 2-3 weeks. Referring Provider: Haley Redding PA-C documented in this encounter Plan of Treatment Upcoming Encounters Date Type Department Care Team (Late st Contact Info) Description 07/20/2024 2:15 PM EDT Office Visit Gynecology/Obstetrics [facility] [address] [place] [address] Anh Cisneros CRNP [address] [place] [address] 07/22/2024 3:15 PM EDT Office Visit Gynecology/Obstetrics [facility] [address] [place] [address] Anh Cisneros CRNP [address] [place] [address] 07/27/2024 1:30 PM EST Office Visit Gynecology/Obstetrics [facility] [address] [place] [address] Chrissy Wei CRNP [address] [place] [address] 08/03/2024 3:00 PM EST Office Visit Gynecology/Obstetrics [facility] [address] [place] [address] Salvador Holcomb MD [address] [place] [address] Health Maintenance Due Date Last Done Comments [...] Vaccine (FLU shot) (#1) 2024 Diabetes Screening 07/13/2027 07/13/2024, 1 , 06/05/2024, Additional history exists DTap/Tdap Vaccines (4 - Td or Tdap) 06/25/2034 06/25/2024, 12/23/2020, 10/28/2012 HPV (Gardasil) Vaccine Aged Out No lo nger eligible based on patient's age to complete this topic MENINGOCOCCAL (MENACTRA/MENVEO) Aged Out No longer eligible based on patient's age to complete this topic documented as of this encounter Medical Devices Not on filedocumented as of this encounter Care Teams Waffle Machine Operator Relationship Specialty Start Date End Date Navneet Alvarez OD [address] [place] [address] PCP - General Family Medicine 07/03/21 documented as of this encounter
--- OUTSIDE RECORDS SUMMARY | 2024-07-16 00:05 | External Medical Summary | Summary of Care ---
Author Name Unknown Organization [facility] Address [address] [place] [address] Phone [phone] Care Team Providers Care Assistant Corporate Secretary Name Role Phone Navneet Alvarez Israel WELSH Primary Care Provider [phone] Encounter Details Date Type Department Care Team (Late st Contact Info) Description 07/13/2024 Result Scan Unspecified Department <No scans attached> Allergies Active Allergy Reactions Criticality Noted Date Comments Penicillins 11/29/2003 hives documented as of this encounter (statuses as of 07/14/2024) Medications Medication Sig Dispensed Refills Start Date [...] as of this encounter (statuses as of 07/14/2024) Active Problems Problem Noted Date Diagnosed Date [...] available Ventricular Rate: 99 Atrial Rate: 99 NE Interval: 156 QRS Duration: 72 QT/QTc: 350/449 ms P-R-T [place]: 64 : 78 : 50 degrees LLQ abdominal pain 08/22/2012 Endometriosis 07/01/2012 Irritable bowel syndrome Estimated Date of Delivery Comme nts Yes 08/12/2024 Based on last me nstrual period of 11/06/2023 documented as of this encounter (statuses as of 07/14/2024) Immunizations Name Administration Dates Next Due RSV [...] money to get more. Never true 05/01/2024 [place] Depression Scale Answer Date Recorded [place] Depression Scale Total 11 06/25/2024 The thought [...] [facility] [address] [place] [address] Anh Cisneros CRNP [address] [place] [address] 07/22/2024 3:15 PM EDT Office Visit Gynecology/Obstetrics [facility] [address] [place] [address] Anh Cisneros CRNP [address] [place] [address] 07/27/2024 1:30 PM EST Office Visit Gynecology/Obstetrics [facility] [address] [place] [address] Chrissy Wei CRNP [address] [place] [address] 08/03/2024 3:00 PM EST Office Visit Gynecology/Obstetrics [facility] [address] [place] [address] Salvador Holcomb MD [address] [place] [address] Health Maintenance Due Date Last Done Comments [...] Vaccine (FLU shot) (#1) 2024 Diabetes Screening 06/25/2027 06/25/2024, 0 06/05/2024, 10/27/2018, Additional history exists DTap/Tdap Vaccines (4 - [...] Procedure Name Priority Date/Time Associated Diagnosis Comments RADIOLOGY SCANNED RESULT 07/13/2024 documented in this encounter Results * RADIOLOGY SCANNED RESULT (07/13/2024) 07/13/2024 No Physician Data Unknown DIAGNOSTIC RAD IOLOGY SERVICES documented in this encounter Care Teams Assistant Corporate Secretary Relationship Specialty Start Date End Date Navneet Alvarez OD [address] [place] [address] PCP - General Family Medicine 07/03/21 documented as of this encounter
--- OUTSIDE RECORDS SUMMARY | 2024-07-16 00:05 | External Medical Summary | Summary of Care ---
Author Name Unknown Organization [facility] Address [address] [place] [address] Phone [phone] Care Team Providers Care Bottle Packing Machine Cleaner Name Role Phone Navneet Alvarez Israel WELSH Primary Care Provider [phone] Reason for Visit * Reason Onset Date Comments Referral 06/05/2024 Encounter Details Date Type Department Care Team (Late st Contact Info) Description 06/05/2024 Telephone Substation Electrician Supervisor Obstetrics Maternal Medicine, [place] [address], [place] [phone] [place] Nurse Substation Electrician Supervisor [facility] [address] [place], [place] [phone] Referral Allergies Active Allergy Reactions Criticality Noted [...] available Ventricular Rate: 99 Atrial Rate: 99 MS Interval: 156 QRS Duration: 72 QT/QTc: 350/449 ms P-R-T [place]: 64 : 78 : 50 degrees LLQ [...] money to get more. Never true 05/01/2024 [place] Depression Scale Answer Date Recorded [place] Depression Scale Total 11 06/25/2024 The thought [...] No 05/01/2024 Does the household have a [facility] source [facility] income? (Household - for [...] Telephone Encounter - Lou Tariq OSA - 07/15/2024 9:54 AM EDT Phone call to patient. Left message on [employer] voice mail. Encouraged patient to return call to [facility] assist with scheduling. Also sent MyG message. * Telephone Encounter - Regine Laird CCMA - 07/15/2024 9:17 AM EDT Estimated Date of Delivery: 08/12/24 Please schedule for 45 MINUTE CONSULT SIMPLE MEDICAL WITH CYCLE ANALYST, in time frame of WITHIN 1 WEEK at location [facility] with the indication of AMA [...] Phone call to patient. Left message on [employer] voice mail. Encouraged patient to return call to [facility] assist with scheduling. * Telephone Encounter - Lou Tariq OSA - 06/08/2024 8:58 AM EDT Tried call pt. No answer, could not leave voicemail. Sent MyG message. * Telephone Encounter - Regine Laird CCMA - 06/05/2024 2:01 PM EDT Estimated Date of Delivery: 08/12/24 Please schedule for 45 MINUTE CONSULT SIMPLE MEDICAL WITH CYCLE ANALYST, in time frame of next available or atpatient's earliest convenience at location [place] with the indication of AMA (36), hx opioid use, limited care, hx cervical cone x2, tobacco use, ADHD, endometriosis, tachycardia. Please schedule anatomy within 2-3 weeks. Referring Provider: Haley Redding PA-C documented in this encounter Plan of Treatment Upcoming Encounters Date Type Department Care Team (Late st Contact Info) Description 07/20/2024 2:15 PM EDT Office Visit Gynecology/Obstetrics [facility] [address] [place] [address] Anh Cisneros CRNP [address] [place] [address] 07/22/2024 3:15 PM EDT Office Visit Gynecology/Obstetrics [facility] [address] [place] [address] Anh Cisneros CRNP [address] [place] [address] 07/27/2024 1:30 PM EST Office Visit Gynecology/Obstetrics [facility] [address] [place] [address] Chrissy Wei CRNP [address] [place] [address] 08/03/2024 3:00 PM EST Office Visit Gynecology/Obstetrics [facility] [address] [place] [address] Slavador Holcomb MD [address] [place] [address] Health Maintenance Due Date Last Done Comments [...] filedocumented as of this encounter Care Teams Bottle Packing Machine Cleaner Relationship Specialty Start Date End Date Navneet Alvarez OD [address] [facility] [place] [address] PCP - General Family Medicine 07/03/21 documented as of this encounter
--- OUTSIDE RECORDS SUMMARY | 2024-07-16 00:06 | External Medical Summary | Summary of Care ---
Author Name Unknown Organization [facility] Address [address] [place] [address] Phone [phone] Care Team Providers Care Sleeve Separator Name Role Phone Navneet Alvarez OD Primary Care Provider [phone] Encounter Details Date Type Department Care Team (Late st Contact Info) Description 07/13/2024 Telephone Gynecology/Obstetrics [facility] [address] [place] [address] Haley Redding PA-C [address] [place] [phone] Allergies Active Allergy Reactions Criticality Noted Date Comments Penicillins 11/29/2003 hives documented as of this encounter (statuses as of 07/13/2024) Medications Medication Sig Dispensed Refills Start Date [...] as of this encounter (statuses as of 07/13/2024) Active Problems Problem Noted Date Diagnosed Date [...] available Ventricular Rate: 99 Atrial Rate: 99 SD Interval: 156 QRS Duration: 72 QT/QTc: 350/449 ms P-R-T [place]: 64 : 78 : 50 degrees LLQ abdominal pain 08/22/2012 Endometriosis 07/01/2012 Irritable bowel syndrome Estimated Date of Delivery Comme nts Yes 08/12/2024 Based on last me nstrual period of 11/06/2023 documented as of this encounter (statuses as of 07/13/2024) Immunizations Name Administration Dates Next Due RSV [...] money to get more. Never true 05/01/2024 [place] Depression Scale Answer Date Recorded [place] Depression Scale Total 11 06/25/2024 The thought [...] encounter Miscellaneous Notes * Telephone Encounter - Haley Redding PA-C - 07/13/2024 4:50 PM EDT Called patient by phone as she did not present to L&D directly as discussed when she left office earlier today. Unable to leave message as mailbox full. This was second attempt to reach patient. documented in this encounter Plan of Treatment Upcoming Encounters Date Type Department Care Team (Late st Contact Info) Description 07/20/2024 2:15 PM EDT Office Visit Gynecology/Obstetrics [facility] [address] [place] [address] Anh Cisneros CRNP [address] [place] [address] 07/22/2024 3:15 PM EDT Office Visit Gynecology/Obstetrics [facility] [address] [place] [address] Anh Cisneros CRNP [address] [place] [address] 07/27/2024 1:30 PM EST Office Visit Gynecology/Obstetrics [facility] [address] [place] [address] Chrissy Wei CRNP [address] [place] [address] 08/03/2024 3:00 PM EST Office Visit Gynecology/Obstetrics [facility] [address] [place] [address] Salvador Holcomb MD [address] [place] [address] Health Maintenance Due Date Last Done Comments [...] filedocumented as of this encounter Care Teams Sleeve Separator Relationship Specialty Start Date End Date Navneet Alvarez OD [address] [place] [address] PCP - General Family Medicine 07/03/21 documented as of this encounter
--- OUTSIDE RECORDS SUMMARY | 2024-07-16 00:06 | External Medical Summary | Summary of Care ---
Author Name Unknown Organization [facility] Address [address] [place] [address] Phone [phone] Care Team Providers Care Senior Patrol Agent Name Role Phone KimNavneet Israel WELSH Primary Care Provider [phone] Reason for Referral * Evaluate & Treat - Unlimited Visits (Within 3 days (urgent)) - Pending Review Specialty Diagnoses / Procedures Referred By Selwyn moya Referred To Contact Obstetrics/Gynecology / Maternal Medicine Diagnoses High-risk in third trimester Gestational hypertension without significant proteinuria in third trimester Haley Redding PA-C [address] [facility] [address] Referral ID Status Reason Start Date Expiration Date Visits Requested Visits Authorized [id number] Pending Review Specialty Services Required [phone] Question Answer Referral Priority Within 3 days (urgent) Has the patient had a viability scan? Yes Date performed 01/09/2024 Location performed Other Reason for referral Hypertension Hypertension type Gestational Where should this appointment be scheduled? [facility] Comments /Para: LMP: Patient's last menstrual period was 11/06/2023. Patient is . DON: 08/12/2024, by Last Menstrual Period Pre-Gravid BMI: Could not be calculated Reason for Visit * Reason Comments Return Visit Encounter Details Date Type Department Care Team (Latest Contact Info) Description 07/13/2024 1:45 PM EDT Office Visit Gynecology/Obstetric s [facility] [address] [place] [address] Haley Redding PA-C [address] [place] [address] High-risk in third trimester*; Endometriosis; Antepartum multigravida of advanced maternal age; History of opioid abuse (HCC); Tobacco smoking affecting , antepartum; Attention deficit hyperactivity disorder (ADHD), unspecified ADHD type; Tachycardia; Antepartum anemia complicating ; Gestational hypertension without significant proteinuria in third trimester Allergies Active Allergy Reactions Criticality Noted [...] available Ventricular Rate: 99 Atrial Rate: 99 [place] Interval: 156 QRS Duration: 72 QT/QTc: 350/449 ms P-R-T [place]: 64 : 78 : 50 degrees LLQ [...] money to get more. Never true 05/01/2024 [place] Depression Scale Answer Date Recorded [place] Depression Scale Total 11 06/25/2024 The thought [...] Sign Reading Time Taken Comments Blood Pressure 142/88 07/13/2024 2:38 PM EDT Pulse - - Temperature - - Respiratory Rate - - Oxygen Saturation - - Inhaled Oxygen Concentration - - Weight 65.7 kg (144 lb 12.8 oz) 07/13/2024 2:38 PM EDT Height - - Body Mass Index 26.48 06/25/2024 2:18 PM EDT documented in this encounter Progress Notes * Haley Redding PA-C - 07/13/2024 3:00 PM EDT 35w5d Last seen 06/25/2024. Patient has had 3 visit this . Late care. BP has been elevated with all 3 visit. PEC labs last visit normal. No proteins by site dip. Pt here today with c/o bilateral lower extremity edema. Pt states legs painful worsening in last week. Some erythema of skin on anterior portion of lower legs. Legs firm/tight, 1-2+ pitting edema. Denies any chest pain, SOB or headache. Having burning/pain sensation in epigastric area radiating to RU[place]. Had gush of fluid yesterday morning into underwear and slightly into pants. Maybe had smaller amount of leaking yesterday morning x 1. No continuous leaking, or regular contractions. Denies VB. BP 142/88. UA 1+ proteins. Pelvic exam: no pooling, Nitrazine x 2 negative. Cervix visually dilated. BME: 1-2/80/-3 aquatic biologist provider contacted, spoke with Dr. Carranza. Pt to present directly to L&D for further evaluation given BP and symptoms. Discussed with patient. Advised not to go home but directly to L&D. She was agreeable. L&D made aware of patient's arrival. Referral placed to [facility] for GHTN, pending labs/evaluation today at L&D may or may not rule in for pre-eclampsia. RTC in 1 week Haley Redding PA-C * Susan Monzon CMA - 07/13/2024 2:38 PM EDT 35w5d Possible fluid loss past 2 days. Severe swelling in both legs/feet. documented in this encounter Plan of Treatment Upcoming Encounters Date Type Department Care Team (Late st Contact Info) Description 07/20/2024 2:15 PM EDT Office Visit Gynecology/Obstetrics [facility] [address] [place] [address] Anh Cisneros CRNP [address] [place] [address] 07/22/2024 3:15 PM EDT Office Visit Gynecology/Obstetrics [facility] [address] [place] [address] Anh Cisneros CRNP [address] [place] [address] 07/27/2024 1:30 PM EST Office Visit Gynecology/Obstetrics [facility] [address] [place] [address] Chrissy Wei CRNP [address] [place] [address] 08/03/2024 3:00 PM EST Office Visit Gynecology/Obst[facility]s [facility] [address] [place] [address] Salvador Holcomb MD [address] [place] [address] Pending Results Name Type Priority Associated Diagnoses Date /Time PROTEIN/ CREATININE RATIO, URINE Lab Routine High-risk in third trimester Gestational hypertension without significant proteinuria in third trimester 07/13/2024 2:54 PM EDT Scheduled Orders Name Type Priority Associated Diagnoses Orde r Schedule CBC Lab Routine High-risk in third trimester Gestational hypertension without significant proteinuria in third trimester Ordered: 07/13/2024 COMPREHENSIVE METABOLIC PANEL Lab Routine High-risk in third trimester Gestational hypertension without significant proteinuria in third trimester Ordered: 07/13/2024 MFM US MATERNAL 1ST FETUS Medical Imaging Routine High-risk in third trimester Gestational hypertension without significant proteinuria in third trimester Expected: 07/13/2024, Expires: 08/13/2025 Scheduled Referrals Name Type Priority Associated Diagnoses Orde r Schedule MATERNAL MEDICINE REFERRAL OP Referral Within 3 days (urgent) High-risk in third trimester Gestational hypertension without significant proteinuria in third trimester Ordered: 07/13/2024 Health Maintenance Due Date Last Done Comments [...] Procedure Name Priority Date/Time Associated Diagnosis Comments URINALYSIS OBSTETRICS, POINT OF CARE Routine 07/13/2024 2:51 PM EDT High-risk in third trimester Gestational hypertension without significant proteinuria in third trimester documented in this encounter Results * (ABNORMAL) URINALYSIS OBSTETRICS, POINT OF CARE (07/13/2024 2:51 PM EDT) Color, Urine Yellow Light Yellow, Yellow 07/13/2024 2:53 PM EDT [facility] [place] [facility] Clarity, Urine Clear Clear 07/13/2024 2:53 PM EDT [facility] [place] [facility] Glucose, Urine Negative Negative mg/dL 07/13/2024 2:53 PM EDT [facility] [place] [facility] Bilirubin, Urine Negative Negative 07/13/2024 2:53 PM EDT [facility] [place] [facility] Ketone, Urine Negative Negative mg/dL 07/13/2024 2:53 PM EDT [facility] [place] [facility] Specific [place], Urine 1.020 1.003 - 1.030 07/13/2024 2:53 PM EDT [facility] [place] [facility] Blood, Urine Negative Negative 07/13/2024 2:53 PM EDT [facility] [place] [facility] pH, Urine 7.0 5.0, 5.5, 6.0, 6.5, 7.0, 7.5 units 07/13/2024 2:53 PM EDT [facility] [place] [facility] Protein, Urine 30(A) Negative mg/dL 07/13/2024 2:53 PM EDT [facility] [place] [facility] Urobilinogen, Urine 0.2 0.2, 1.0 mg/dL 07/13/2024 2:53 PM EDT [facility] [place] [facility] Nitrite, Urine Negative Negative 07/13/2024 2:53 PM EDT [facility] [place] [facility] Esterase, Urine Trace(A) Negative 07/13/2024 2:53 PM EDT [facility] [place] [facility] Urine 07/13/2024 2:51 PM EDT 07/13/2024 2:53 PM EDT Haley Redding PA-C LAB POINT OF CARE TE ST DOCKED DEVICE UNSOLICITED RESULTS [facility] [place] [address] [place] [address] [place] [address] documented in this encounter Visit Diagnoses Diagnosis High-risk in third trimester- Primary Endometriosis Endometriosis, site unspecified Antepartum multigravida of advanced maternal age History of opioid abuse (HCC) Opioid abuse, in remission Tobacco smoking affecting , antepartum Attention deficit hyperactivity disorder (ADHD), unspecified ADHD type Tachycardia Tachycardia, unspecified Antepartum anemia complicating Anemia, antepartum Gestational hypertension without significant proteinuria in third trimester Transient hypertension of , antepartum documented in this encounter Care Teams Senior Patrol Agent Relationship Specialty Start Date End Date Navneet Alvarez OD [address] [facility] [place] [address] PCP - General Family Medicine 07/03/21 documented as of this encounter
--- OUTSIDE RECORDS SUMMARY | 2024-07-16 00:06 | External Medical Summary ---
Author Name Unknown Address Unknown Organization K01[facility] [address] [place] [address] Laboratory Report Ordering Provider Test Date Status JUDIE BEGUM 07/13/2024 14:54:33 Final Normal: <150 mg/ g creatinine
High: 150-500 mg/g creatinine
Very High: >500 mg/g creatinine
Nephrotic: >3000 mg/g creatinine Observation Date Value Abnormality Reference (Units ) Status Protein/Creatinine [Ratio] in Urine 07/13/2024 14:54:33 192 Above high normal <150 (mg/g ) Final Protein, Urine 07/13/2024 14:54:33 35 (mg/dL) Final Creatinine, Urine 07/13/2024 14:54:33 182 (mg/dL) Final Performing Location [facility] [address] [place] [address]
== END 2024-07-15 13:00 | disposition home or self-care (01) ==
LOC: 4S1 22:03 → OPB 22:03 → 4S1 22:05 → 4E1 07-14 10:35

== ENCOUNTER 2024-07-20 19:03 | Inpatient (IN) ==
[2024-07-20 19:55] LABS: Amphetamines+Metham, Urine Pos (Neg); Barbiturates, Urine Neg (Neg); Benzodiazepine, Urine Neg (Neg); Cocaine, Urine Neg (Neg); Fentanyl, Urine Neg (Neg); MDMA (Ecstacy), Urine Neg (Neg); Marijuana, Urine Neg (Neg); Methadone, Urine Neg (Neg); Opiate, Urine Neg (Neg); Phencyclidine, Urine Neg (Neg)
[2024-07-20] MEDS ORDERED: LIDOCAINE 1% LOCAL 20 ML VIAL INFIL PRN (20:05)
[2024-07-20] MEDS ORDERED: OXYTOCIN 30 UNITS/NSS 30 UNITS/500 ML BAG IV PRN (20:05)
[2024-07-20] MEDS: ceFAZolin 2000MG 2,000 MG/15 ML SYR IV STA (20:37)
[2024-07-20 20:40] LABS: Hematocrit (blood only) 33.2 % (37.0-47.0); Hemoglobin 11.3 g/dl (12.0-16.0); Mean Corpuscular Hemoglobin 30.3 pg (25.0-34.0); Mean Platelet Volume 9.7 fL (9.4-12.4); Platelet Count 369 K/uL (130-400); RDW Coefficient of Variation 12.9 % (11.5-14.5); RDW Standard Deviation 41.6 fL (36.4-46.3); Red Blood Count 3.73 M/uL (4.20-5.40); White Blood Count 12.38 K/ul (4.8-10.8)
--- NOTE | 2024-07-20 20:40 | History & Physical Report ---
Date of Service July 20, 2024 Assessment & Plan (1) Cellulitis: Plan: continue antibiotics (2) premature rupture of membranes (PPROM) with onset of labor after 24 hours of rupture in third trimester, antepartum: Plan: Start induction of labor antibiotics for GBS unknown and prolonge rupture (3) Substance abuse affecting in third trimester, antepartum: History of Present Illness Chief Complaint: leakage of amniotic fluid Primary Care Provider: Navneet Alvarez 38 F P0030 at 36.5 weeks with PPROM clear fluid at 0700 07/19/24 presents after being seen this afternoon in the office. Denies any contractions. Patient was told to come to L&D after her visit and patient just showed up several hours later. GBS is pending. Was recently seen and treated her for cellulitis in both legs last week. Her cellulitis has improved markedly in both legs and she is still on antibiotics. Allergies Allergy/AdvReac Type Severity Reaction Status Date / Time Penicillins Allergy Unknown hives. Verified 07/20/24 19:30 Home Medications Medication Instructions Recorded Confirmed Type iron,carbonyl 65 mg-vitamin C 125 1 tab PO BID 07/13/24 07/20/24 History mg tablet,delayed release (Vitron-C) vits no.124-ferrous fum 1 tab PO DAILY 07/13/24 07/20/24 History 27 mg iron-folic acid 800 mcg tablet ( Vitamin) cephalexin 500 mg capsule 500 mg PO TID 7 days #21 caps 07/14/24 07/20/24 Rx Patient History Medical History Endometriosis determined by laparoscopy Tachycardia Smoker 8-10 cigarettes per day History of opioid abuse 8 years ago.. patient states "I took anything" ADHD Endometriosis Surgical History [place] teeth removed H/O cone biopsy of cervix Social History Smoking Status: Current every day smoker Tobacco Type: Cigarettes Cigarettes Per Day: 6-10; Second Hand Exposure: Yes; Hx Alcohol Use: No Hx Substance Use: No Preferred Language: Maori Communication Ability: Effective Rectangular Tank Cooper Required: No Beliefs That Will Affect Care: None marital status: Single Current Living Situation: Parent Current Living Situation Comment: father Other Information That Helps Us Care for You: No Feels Safe at Home: Yes Safety Concerns: Feels Safe At This Time Assistive Devices: None OB History primip FRETTED INSTRUMENT INSPECTOR History neg Review of Systems All systems reviewed & are unremarkable except as noted in HPI & below Physical Exam Constitutional: WD/WN, vitals as above Eyes: PERRL, conjunctivae normal, anicteric sclerae Respiratory: normal respiratory effort, lungs clear to auscultation Cardiovascular: Rate/Rhythm: regular rate and regular rhythm Gastrointestinal (Abdomen): Inspection/Auscultation: abdomen normal to inspection Musculoskeletal: 2+ bilateral lower leg edema with some e rythema noted Skin: no rashes, warm and dry Neurologic: patellar DTR's 2+ bilat, sensation intact Psychiatric: A+Ox3, euthymic affect Genitourinary: no vaginal lesions, no adnexal mass Manual OB Exam: + cervical dilation 3 cm, + cervical effacement 100%, + station -1 and + amniotic fluid clear Results & Data Vital Signs (Past 12 Hours) Vital Signs Temp Pulse Resp BP O2 Del Method 07/20/24 19:37 105 H 07/20/24 19:37 151/90 H 07/20/24 19:32 37.0 C 105 H 18 151/90 H Room Air 07/20/24 19:24 18 07/20/24 19:24 37.0 C 18 07/20/24 19:23 113 H 153/93 H Laboratory Results Laboratory Results - last 72 hr 07/20/24 19:15 Urine Opiates Screen Neg Ur Methadone, Qual Neg Urine Fentanyl Screen Neg Urine Barbiturates Neg Ur Phencyclidine (PCP) Neg U Amphetamin/Meth Scrn Pos H MDMA (Ecstasy) Screen Neg U Benzodiazepines Scrn Neg Ur Cocaine Metabolite Neg U Marijuana (THC) Screen Neg Diagnostic Findings Amnisure positive Code Status & VTE Plan VTE Prophylaxis Plan VTE Prophylaxis will be ordered: No Monitoring External Monitor Cat 1 (1) Cellulitis Site of cellulitis of extremity: lower extremity Laterality: right Site of cellulitis: extremity Qualified Code(s): L03.115 - Cellulitis of right lower limb
[2024-07-20] MEDS: OXYTOCIN 30 UNITS/NSS 30 UNITS/500 ML BAG IV PRN (20:53)
[2024-07-20 20:57] LABS: BUN Creatinine Ratio 16.1 (10-20); Calcium 8.6 mg/dl (8.6-10.3); Creatinine Clr Calc Pharmacy 127.4 ml/min; Potassium 3.9 mmol/L (3.5-5.1)
[2024-07-20] MEDS: LACTATED RINGER'S 1,000 ML IV SCH (21:00)
--- NOTE | 2024-07-20 22:38 | Labor Progress Brief Note ---
Date of Service July 20, 2024 Physical Exam Genitourinary: Manual OB Exam: + cervical dilation 4 cm, + cervical effacement 100%, + station 0 and + amniotic fluid clear OB Exam Monitor Tracing: + external FHT monitor used, + external uterine monitor used, + category I and + normal FHT variability Results & Data Vital Signs (Past 12 Hours) Vital Signs Temp Pulse Resp BP O2 Del Method 07/20/24 22:04 94 H 07/20/24 22:04 141/88 H 07/20/24 20:56 109 H 07/20/24 20:56 152/98 H 07/20/24 20:55 20 07/20/24 20:55 36.9 C 20 07/20/24 19:37 105 H 07/20/24 19:37 151/90 H 07/20/24 19:32 37.0 C 105 H 18 151/90 H Room Air 07/20/24 19:24 18 07/20/24 19:24 37.0 C 18 07/20/24 19:23 113 H 153/93 H
[2024-07-20 23:09] LABS: Total Protein Urine Random 17.1 mg/dl (0-11.9)
[2024-07-20 23:15] LABS: Creatinine Urine Random 60.8 mg/dl; Protein Creatinine Ratio Urine 0.3 (0-0.2)
[2024-07-20] MEDS: LIDOCAINE 2%/EPINEPHRINE 1:200,000 20 ML PF ONE (23:43)
[2024-07-20] MEDS: BUPIVACAINE 0.25% PF 30 ML VIAL ONE (23:43)
[2024-07-20] MEDS: SODIUM CHLORIDE 0.9% PF INJ 10 ML VIAL ONE (23:43)
[2024-07-20] MEDS: fentANYL 2 MCG/ML BUPIVacaine 0.125%-NSS 100ML BAG ONE (23:46)
[2024-07-20] MEDS ORDERED: ePHEDrine sulfate 50 MG/ML AMP IV PRN (23:50)
[2024-07-20] MEDS ORDERED: NALBUPHINE HCL INJ 10 MG/ML AMP IV PRN (23:50)
[2024-07-20] MEDS ORDERED: SODIUM CHLORIDE 0.9% PF INJ 10 ML VIAL EPI PRN (23:50)
[2024-07-20] MEDS ORDERED: ONDANSETRON INJ 2 MG/ML 2 ML VIAL IV PRN (23:50)
[2024-07-20] MEDS ORDERED: NALOXONE HCL 0.4 MG/1 ML VIAL/CARP IV PRN (23:50)
[2024-07-20] MEDS ORDERED: LIDOCAINE 2% MPF LOCAL 5 ML VIAL EPI PRN (23:50)
[2024-07-20] MEDS ORDERED: ROPIVACAINE 0.5% PF 5 MG/ML 20 ML VIAL EPI PRN (23:50)
[2024-07-20] MEDS ORDERED: fentANYL 2 MCG/ML BUPIVacaine 0.125%-NSS 100ML BAG EPI PRN (23:50)
[2024-07-20] MEDS ORDERED: diphenhydrAMINE 50 MG/ML VIAL IV PRN (23:50)
[2024-07-20] MEDS ORDERED: BUPIVACAINE 0.25% PF 30 ML VIAL EPI PRN (23:50)
[2024-07-20] MEDS ORDERED: NALOXONE HCL 1 MG in SODIUM CHLORIDE 0.9% 1,000 ML IV PRN (23:50)
[2024-07-20] MEDS ORDERED: fentaNYL citrate PF 100 MCG/2 ML VIAL EPI PRN (23:50)
--- NOTE | 2024-07-20 23:50 | Anesthesiology Consultation ---
Date of Service July 20, 2024 Assessment & Plan Chart Review Chart Review: Patient NOT seen in Pre Admission Testing and Acceptable Risk for Labor Epidural Consults Requested none ASA ASA2 Proposed Anesthesia Anesthesia Type: Labor Epidural Risk / Benefits Reviewed With: PT / POA / Parent / Guardian, Accepts Plan and Informed Consent Obtained History Height/Weight Height: 5 ft 3 in Weight: 66.678 kg Allergies Allergy/AdvReac Type Severity Reaction Status Date / Time Penicillins Allergy Unknown hives. Verified 07/20/24 19:30 Medications Home Medications Medication Instructions Recorded Confirmed Last Taken iron,carbonyl 65 mg-vitamin C 125 1 tab PO BID 07/13/24 07/20/24 07/19/24 20:00 mg tablet,delayed release (Vitron-C) vits no.124-ferrous fum 1 tab PO DAILY 07/13/24 07/20/24 07/19/24 20:00 27 mg iron-folic acid 800 mcg tablet ( Vitamin) cephalexin 500 mg capsule 500 mg PO TID 7 days #21 caps 07/14/24 07/20/24 07/19/24 20:00 Active Medications Generic Name Dose Route Start Last Admin Trade Name Freq PRN Reason Stop Dose Admin Oxytocin 30 units in 500 mls @ 5 mls/hr 07/20/24 20:30 07/20/24 22:05 Pitocin 30 Units/Nss IV 07/22/24 20:29 0.3 units/hr .Q24H PRN 5 mls/hr Labor Induction/Augmentation Titration Protocol 0.3 UNITS/HR Lactated Ringer's 1,000 mls @ 50 mls/hr 07/20/24 21:00 07/20/24 21:00 Lr IV 07/21/24 20:59 50 mls/hr .Q20H JOSEE Administration Protocol Past Medical History Medical History Endometriosis determined by laparoscopy Tachycardia Smoker 8-10 cigarettes per day History of opioid abuse 8 years ago.. patient states "I took anything" ADHD Endometriosis Exercise / Class Metabolic Activity II 4-5 Yardwork/Stairs/Walk up hill Past Surgical History Surgical History [place] teeth removed H/O cone biopsy of cervix Past Anesthesia History No Hx of Anesthesia Complications and No Family Hx of Anesthesia Complications History of PONV No Hx of PONV and No Hx of Motion Sickness Social History Smoking Status: Current every day smoker Smoking cigarettes per day: 6-10 Hx Alcohol Use: No Hx Substance Use: No substance use type: former substance user Last Used Substance Other:: 8 years ago Physical Exam Vital Signs Last Vital Signs Temp 36.8 C 07/20/24 22:53 Pulse 87 07/20/24 23:46 Resp 18 07/20/24 22:53 BP 167/97 H 07/20/24 23:46 Pulse Ox 100 07/20/24 23:46 O2 Del Method Room Air 07/20/24 19:32 ENMT Mouth: no dentition abnormality Thyromental Distance: > or= 3.5 Finger Breadths Mallampati Class: II Neck normal visual inspection Respiratory normal respiratory effort Auscultation: lungs clear to auscultation bilaterally Cardiovascular Rate/Rhythm: regular rate and regular rhythm Psychiatric Orientation: alert Testing Laboratory Results 07/20/24 20:21 07/20/24 20:24
[2024-07-21] MEDS ORDERED: ceFAZolin 1000MG 1,000 MG/7.5 ML SYR IV PRN (03:05)
[2024-07-21] MEDS: ePHEDrine sulfate 50 MG/ML AMP ONE (03:50)
[2024-07-21] MEDS: fentaNYL citrate PF 100 MCG/2 ML VIAL ONE (03:50)
--- OUTSIDE RECORDS SUMMARY | 2024-07-21 04:19 | External Medical Summary | Summary of Care ---
Author Name Unknown Organization [facility] Address [address] [place] [address] Phone [phone] Care Team Providers Care Field Support Engineer Name Role Phone Navneet Alvarez Israel WELSH Primary Care Provider [phone] Reason for Visit * Reason Onset Date Comments Referral 06/05/2024 Encounter Details Date Type Department Care Team (Late st Contact Info) Description 06/05/2024 Telephone Condenser Cleaner Obstetrics M[facility] Medicine, [place] [address], [place] [phone] [place] Nurse Condenser Cleaner [facility] [address], [place] [phone] Referral Allergies Active Allergy Reactions Criticality Noted Date Comments Penicillins 11/29/2003 hives documented as of this encounter (statuses as of 07/20/2024) Medications Medication Sig Dispensed Refills Start Date [...] as of this encounter (statuses as of 07/20/2024) Active Problems Problem Noted Date Diagnosed Date [...] available Ventricular Rate: 99 Atrial Rate: 99 [place] Interval: 156 QRS Duration: 72 QT/QTc: 350/449 ms P-R-T [place]: 64 : 78 : 50 degrees LLQ abdominal pain 08/22/2012 Endometriosis 07/01/2012 Irritable bowel syndrome Estimated Date of Delivery Comme nts Yes 08/12/2024 Based on last me nstrual period of 11/06/2023 documented as of this encounter (statuses as of 07/20/2024) Immunizations Name Administration Dates Next Due RSV [...] money to get more. Never true 05/01/2024 [place] Depression Scale Answer Date Recorded [place] Depression Scale Total 11 06/25/2024 The thought [...] No 05/01/2024 Does the household have a [facility] source of income? (Household - for [...] Telephone Encounter - Lou Tariq OSA - 07/20/2024 7:59 AM EDT multiple unsuccessful attempts to contact pt, sent letter * Telephone Encounter - Jocelyn Cartwright OSA - 07/17/2024 8:16 AM EDT Phone call to patient. Left message on [employer] voice mail. Encouraged patient to return call to [phone] to assist with scheduling. Sent second My G message. * Telephone Encounter - Lou Tariq OSA - 07/15/2024 9:54 AM EDT Phone call to patient. Left message on [employer] voice mail. Encouraged patient to return call to [facility] assist with scheduling. Also sent MyG message. * Telephone Encounter - Regine Laird CCMA - 07/15/2024 9:17 AM EDT Estimated Date of Delivery: 08/12/24 Please schedule for 45 MINUTE CONSULT SIMPLE MEDICAL WITH DRUM PULLER, in time frame of WITHIN 1 WEEK at location [facility] with the indication of AMA [...] Phone call to patient. Left message on [employer] voice mail. [facility] * Telephone Encounter - Lou Tariq OSA - 06/08/2024 8:58 AM EDT Tried call pt. No answer, could not leave voicemail. Sent [employer] message. * Telephone Encounter - Regine Laird CCMA - 06/05/2024 2:01 PM EDT Estimated Date of Delivery: 08/12/24 Please schedule for 45 MINUTE CONSULT SIMPLE MEDICAL WITH DRUM PULLER, in time frame of next available or atpatient's earliest convenience at location [facility] with the indication of AMA (36), hx opioid use, limited care, hx cervical cone x2, tobacco use, ADHD, endometriosis, tachycardia. Please schedule anatomy within 2-3 weeks. Referring Provider: Haley Redding PA-C documented in this encounter Plan of Treatment Upcoming Encounters Date Type Department Care Team (Late st Contact Info) Description 07/20/2024 2:15 PM EDT Office Visit Gynecology/Obstetrics [facility] [address] [place] [id number] Anh Cisneros CRNP [address] [place] [address] 07/22/2024 3:15 PM EDT Office Visit Gynecology/Obstetrics [facility] [address] [place] [address] Anh Cisneros CRNP [address] [place] [address] 07/27/2024 1:30 PM EST Office Visit Gynecology/Obstetrics [facility] [address] [place] [address] Chrissy Wei CRNP [address] [place] [address] 08/03/2024 3:00 PM EST Office Visit Gynecology/Obstetrics [facility] [address] [place] [address] Salvador Holcomb MD [address] [place] [address] Health Maintenance Due Date Last Done Comments [...] filedocumented as of this encounter Care Teams Field Support Engineer Relationship Specialty Start Date End Date Navneet Alvarez OD Emmanuel9 Brien Chacon [facility] [place] [address] PCP - General Family Medicine 07/03/21 documented as of this encounter
--- OUTSIDE RECORDS SUMMARY | 2024-07-21 04:19 | External Medical Summary | Summary of Care ---
Author Name Unknown Organization [facility] Address [address] [place] [address] Phone [phone] Care Team Providers Care Production Line Assembler Name Role Phone Navneet Alvarez OD Primary Care Provider [phone] Encounter Details Date Type Department Care Team (Late st Contact Info) Description 07/15/2024 Telephone Gynecology/Obstetrics [facility] [address] [place] [address] Haley Redding PA-C [address] [place] [phone] Allergies Active Allergy Reactions Criticality Noted Date Comments Penicillins 11/29/2003 hives documented as of this encounter (statuses as of 07/16/2024) Medications Medication Sig Dispensed Refills Start Date [...] as of this encounter (statuses as of 07/16/2024) Active Problems Problem Noted Date Diagnosed Date [...] QRS Duration: 72 QT/QTc: 350/449 ms P-R-T [place]: 64 : 78 : 50 degrees LLQ abdominal pain 08/22/2012 Endometriosis 07/01/2012 Irritable bowel syndrome Estimated Date of Delivery Comme nts Yes 08/12/2024 Based on last me nstrual period of 11/06/2023 documented as of this encounter (statuses as of 07/16/2024) Immunizations Name Administration Dates Next Due RSV [...] money to get more. Never true 05/01/2024 [place] Depression Scale Answer Date Recorded [place] Depression Scale Total 11 06/25/2024 The thought [...] Telephone Encounter - Sonia Mcgrath RN - 07/16/2024 9:13 AM EDT Attempted to call patient. No answer, Lvm to return call. * Telephone Encounter - Haley Redding PA-C - 07/15/2024 4:51 PM EDT Her protein-creatine ratio was not elevated indicating pre-eclampsia. Additional labs not done as patient sent directly to L&D following this appointment regarding BP and lower extremity edema. Patient presented to L&D later that evening at 11 PM. I was informed by seasoning mixer provider that BP's were good there. Found to have cellulitis of lower legs and treated with IV antibiotics. Please let her know these results and that she needs to keep future follow up appointments. Should be seen back weekly at this stage in . documented in this encounter Plan of Treatment Upcoming Encounters Date Type Department Care Team (Late st Contact Info) Description 07/20/2024 2:15 PM EDT Office Visit Gynecology/Obstetrics [facility] [address] [place] [place] [address] Anh Cisneros CRNP [address] [place] [address] 07/22/2024 3:15 PM EDT Office Visit [facility]cology[facility] [address] [place] [address] Anh Cisneros CRNP [address] [place] [phone] 07/27/2024 1:30 PM EST Office Visit Gynecology/Obstetrics [facility] [address] [place] [address] Chrissy Wei CRNP [address] [place] [address] 08/03/2024 3:00 PM EST Office Visit Gynecology/Obstetrics [facility] [address] [place] [address] Salvador Holcomb MD [address] [place] [address] Health Maintenance Due Date Last Done Comments [...] filedocumented as of this encounter Care Teams Production Line Assembler Relationship Specialty Start Date End Date Navneet Alvarez OD Emmanuel9 Brien Chacon [address] [place] [address] PCP - General Family Medicine 07/03/21 documented as of this encounter
--- OUTSIDE RECORDS SUMMARY | 2024-07-21 04:19 | External Medical Summary | Summary of Care ---
Author Name Unknown Organization [facility] Address [address] [place] [address] Phone [phone] Care Team Providers Care Police Patrol Officer Name Role Phone Navneet Alvaerz Israel WELSH Primary Care Provider [phone] Reason for Visit * Reason Onset Date Comments Referral 06/05/2024 Encounter Details Date Type Department Care Team (Late st Contact Info) Description 06/05/2024 Telephone Windows Systems Engineer Obstetrics Maternal Medicine, [place] [address] [place], [place] [phone] [place] Nurse Windows Systems Engineer [facility] [address] [place], [place] [phone] Referral Allergies Active Allergy Reactions Criticality Noted Date Comments Penicillins 11/29/2003 hives documented as of this encounter (statuses as of 07/17/2024) Medications Medication Sig Dispensed Refills Start Date [...] as of this encounter (statuses as of 07/17/2024) Active Problems Problem Noted Date Diagnosed Date [...] available Ventricular Rate: 99 Atrial Rate: 99 [place] Interval: 156 QRS Duration: 72 QT/QTc: 350/449 ms P-R-T [place]: 64 : 78 : 50 degrees LLQ abdominal pain 08/22/2012 Endometriosis 07/01/2012 Irritable bowel syndrome Estimated Date of Delivery Comme nts Yes 08/12/2024 Based on last me nstrual period of 11/06/2023 documented as of this encounter (statuses as of 07/17/2024) Immunizations Name Administration Dates Next Due RSV [...] money to get more. Never true 05/01/2024 [place] Depression Scale Answer Date Recorded [place] Depression Scale Total 11 06/25/2024 The thought [...] No 05/01/2024 Does the household have a [facility] source of income? (Household - for [...] encounter Miscellaneous Notes * Telephone Encounter - Brosious, Jocelyn, GRACIE - 07/17/2024 8:16 AM EDT Phone call to patient. Left message on [employer] voice mail. Encouraged patient to return call to [phone] to assist with scheduling. Sent second My G message. * Telephone Encounter - Lou Tariq OSA - 07/15/2024 9:54 AM EDT Phone call to patient. Left message on [employer] voice mail. Encouraged patient to return call to [facility] assist with scheduling. Also sent MyG message. * Telephone Encounter - Regine Laird CCMA - 07/15/2024 9:17 AM EDT Estimated Date of Delivery: 08/12/24 Please schedule for 45 MINUTE CONSULT SIMPLE MEDICAL WITH STEAM FRAME OPERATOR, in time frame of WITHIN 1 WEEK at location [facility] with the indication of AMA (36), hx [...] Phone call to patient. Left message on [employer] voice mail. Encouraged patient to return call to [facility] assist with scheduling. * Telephone Encounter - Lou Tariq OSA - 06/08/2024 8:58 AM EDT Tried call pt. No answer, could not leave voicemail. Sent MyG message. * Telephone Encounter - Regine Laird CCMA - 06/05/2024 2:01 PM EDT Estimated Date of Delivery: 08/12/24 Please schedule for 45 MINUTE CONSULT SIMPLE MEDICAL WITH STEAM FRAME OPERATOR, in time frame of next available or atpatient's earliest convenience at location [facility] with the indication of AMA (36), hx opioid use, limited care, hx cervical cone x2, tobacco use, ADHD, endometriosis, tachycardia. Please schedule anatomy within 2-3 weeks. Referring Provider: Haley Rdeding PA-C documented in this encounter Plan of Treatment Upcoming Encounters Date Type Department Care Team (Late st Contact Info) Description 07/20/2024 2:15 PM EDT Office Visit Gynecology/Obstetrics [facility] [address] [place] [address] Anh Cisneros CRNP [address] [place] [address] 07/22/2024 3:15 PM EDT Office Visit Gynecology/Obstetrics [facility] [address] [place] [address] Anh Cisneros CRNP [address] [place] [address] 07/27/2024 1:30 PM EST Office Visit Gynecology/Obstetrics [facility] [address] [place] [address] Chrissy Wei CRNP [address] [place] [address] 08/03/2024 3:00 PM EST [facility] [address] [place] [address] Salvador Holcomb MD [address] [place] [address] Health Maintenance Due Date Last Done Comments [...] filedocumented as of this encounter Care Teams Police Patrol Officer Relationship Specialty Start Date End Date Navneet Alvarez OD [address] [place] [id number] PCP - General Family Medicine 07/03/21 documented as of this encounter
--- NOTE | 2024-07-21 04:52 | Delivery Summary ---
Vaginal Delivery Summary Date of Service July 21, 2024 Vaginal Delivery Summary live male TIMI over intact perineum with delayed cord clamping and Apgars 8/9 weight pending. Cord blood obtained followed by spontaneous delivery of intact placenta. No tears. QBL 100 ml. Final sponge and instrument count are correct. Mom and baby stable.
[2024-07-21] MEDS ORDERED: OXYTOCIN 30 UNITS/NSS 30 UNITS/500 ML BAG IV PRN (05:17)
[2024-07-21] MEDS ORDERED: ACETAMINOPHEN 325 MG TAB PO PRN (05:17)
[2024-07-21] MEDS ORDERED: HYDROCORTISONE ACETATE 25 MG SUPP PR PRN (05:17)
--- OUTSIDE RECORDS SUMMARY | 2024-07-21 06:08 | External Medical Summary | Summary of Care ---
Author Name Unknown Organization [facility] Address [address] [place] [address] Phone [phone] Care Team Providers Care Parts Department Manager Name Role Phone Navneet Alvarez Irsael WELSH Primary Care Provider [phone] Reason for Visit * Reason Comments Return Visit Encounter Details Date Type Department Care Team (Latest Contact Info) Description 07/20/2024 2:15 PM EDT Office Visit Gynecology/Obstetric s [facility] [address] [place] [address] Anh Cisneros CRNP [address] [facility] [place] [address] High-risk in third trimester*; Antepartum multigravida of advanced maternal age; History of opioid abuse (HCC); Tobacco smoking affecting , antepartum; Attention deficit hyperactivity disorder (ADHD), unspecified ADHD type; Tachycardia; Antepartum anemia complicating ; premature rupture of membranes (PPROM) with unknown onset of labor Allergies Active Allergy Reactions Criticality Noted Date [...] available Ventricular Rate: 99 Atrial Rate: 99 RI Interval: 156 QRS Duration: 72 QT/QTc: 350/449 ms P-R-T [place]: 64 : 78 : 50 degrees LLQ [...] money to get more. Never true 05/01/2024 [place] Depression Scale Answer Date Recorded [place] Depression Scale Total 11 06/25/2024 The thought [...] Sign Reading Time Taken Comments Blood Pressure 144/88 07/20/2024 2:14 PM EDT Pulse - - Temperature - - Respiratory Rate - - Oxygen Saturation - - Inhaled Oxygen Concentration - - Weight 66.7 kg (147 lb) 07/20/2024 2:14 PM EDT Height - - Body Mass Index 26.89 06/25/2024 2:18 PM EDT documented in this encounter Progress Notes * Anh Cisneros CRNP - 07/20/2024 2:58 PM EDT 36w5d Was hospitalized for 2 days since last visit for ?cellulitis. Legs were swollen and red. Still swollen, but improved. Reports leaking of fluid since yesterday morning. Has gone through 4 regular sized pads in the pastday. Did not call office. Her mother in law didn't think her water had broken. On exam, pt grossly ruptured. Perineum very wet, with clear fluid draining. SSE done, +pooling. Nitrazine positive. Luggage Maker Documentation Provider requested stockbroking dealer. Name of stockbroking dealer: Susan Call to Dr. Springer, pt to L&D. Stressed importance of going straight to the hospital. BRITTNEY Silva * Susan Monzon CMA - 07/20/2024 2:14 PM EDT 36w5d Went to L&D last visit 07/13, pt states L&D wants induction scheduled for this week. Will call L&D for details and schedule IOL. documented in this encounter Plan of Treatment Upcoming Encounters Date Type Department Care Team (Late st Contact Info) Description 07/22/2024 3:15 PM EDT Office Visit Gynecology/Obstetrics [facility] [address] [place] [address] Anh Cisneros CRNP [address] [place] [address] 07/27/2024 1:30 PM EST Office Visit Gynecology/Obstetrics [facility] [address] [place] [address] Chrissy Wei CRNP [address] [place] [address] 08/03/2024 3:00 PM EST Office Visit Gynecology/Obstetrics [facility] [address] [place] [address] Salvador Holcomb MD [address] [place] [address] Health Maintenance Due Date Last Done Comments [...] as of this encounter Visit Diagnoses Diagnosis High-risk in third trimester- Primary Antepartum multigravida of advanced maternal age History of opioid abuse (HCC) Opioid abuse, in remission Tobacco smoking affecting , antepartum Attention deficit hyperactivity disorder (ADHD), unspecified ADHD type Tachycardia Tachycardia, unspecified Antepartum anemia complicating Anemia, antepartum premature rupture of membranes (PPROM) with unknown onset of labor documented in this encounter Care Teams Parts Department Manager Relationship Specialty Start Date End Date Navneet Alvarez OD Emmanuel[address] Brien Chacon [facility] [place] [address] PCP - General Family Medicine 07/03/21 documented as of this encounter
--- OUTSIDE RECORDS SUMMARY | 2024-07-21 06:08 | External Medical Summary | Summary of Care ---
Author Name Unknown Organization [facility] Address [address] [place] [address] Phone [phone] Care Team Providers Care Live Study Manager Name Role Phone Damian Alvarezory Israel WELSH Primary Care Provider [phone] Encounter Details Date Type Department Care Team (Late st Contact Info) Description 07/20/2024 Telephone Gynecology/Obstetrics [facility] [address] [place] [address] Fernando Barrientos MD [address] [place] [address] Allergies Active Allergy Reactions Criticality Noted Date [...] available Ventricular Rate: 99 Atrial Rate: 99 MD Interval: 156 QRS Duration: 72 QT/QTc: 350/449 ms P-R-T [place]: 64 : 78 : 50 degrees LLQ [...] money to get more. Never true 05/01/2024 [place] Depression Scale Answer Date Recorded [place] Depression Scale Total 11 06/25/2024 The thought [...] Telephone Encounter - Dayan Jensen LPN - 07/20/2024 4:[address] barrientos called the office wondering where the patient is, she has not shown up to l+d yet. I triedcalling the patient and it went straight to voicemail, voicemail was full. documented in this encounter Plan of Treatment Upcoming Encounters Date Type Department Care Team (Late st Contact Info) Description 07/22/2024 3:15 PM EDT Office Visit Gynecology/Obstetrics [facility] [address] [place] [address] Anh Cisneros CRNP [address] [place] [address] 07/27/2024 1:30 PM EST Office Visit Gynecology/Obstetrics [facility] [address] [place] [address] Chrissy Wei CRNP [address] [place] [address] 08/03/2024 3:00 PM EST Office Visit Gynecology/Obstetrics [facility] [address] [place] [address] Salvador Holcomb MD [address] [place] [address] Health Maintenance Due Date Last Done Comments Pneumococcal Vaccine: Pediatrics (0 to 5 Years) and At-Risk Patients (6 to 64 Years) (1 of 2 - PCV) 1993 Hepatitis B Vaccine (1 of 3 - 19+ 3-dose series) 2006 HPV/Co-Test 2017 Depression Screening 10/31/2019 10/31/2018 Cervical Cancer Screening 11/09/2022 Pap Smear 11/09/2022 11/09/2019, 10/24, 10/31/2018, Additional history exists COVID-19 Vaccine (1 - season) 2024 Influenza Vaccine (FLU shot) [...] filedocumented as of this encounter Care Teams Live Study Manager Relationship Specialty Start Date End Date Navneet Alvarez OD [address] [place] [id number] PCP - General Family Medicine 07/03/21 documented as of this encounter
[2024-07-21] MEDS: LABETALOL HCL 100 MG TAB PO SCH (06:09)
--- NOTE | 2024-07-21 08:11 | Anesthesia Procedure Note ---
Date of Service July 21, 2024 Anesthesia Post Epidural Note Vital Signs Vital Signs: Temp Pulse Resp BP Pulse Ox O2 Del Method 36.8 C 85 16 120/57 L 88 L Room Air 07/21/24 02:25 07/21/24 07:24 07/21/24 06:40 07/21/24 07:24 07/21/24 04:43 07/20/24 19:32 Pain Intensity Abdomen: Pain Intensity: 0 Notes Mental Status: alert / awake / arousable Nausea / Vomiting: adequately controlled Pain: adequately controlled Airway Patency, RR, SpO2: stable & adequate BP & HR: stable & adequate Hydration State: stable & adequate Neuraxial Anesthesia: was administered and sensory block is resolving Anesthetic Complications: no major complications apparent and Pt Satisfied with anesthetic care Epidural: Removed without complications and With tip intact
[2024-07-21] MEDS ORDERED: PRENATAL VITAMIN 1 TAB PO SCH (09:00)
[2024-07-21] MEDS ORDERED: NON-FORMULARY MEDICATION (Iron,Carbonyl-Vitamin C [Vitron-C] 65 mg iron- 125 mg Tablet,Del PO SCH (09:00)
[2024-07-21] MEDS: PRENATAL VITAMIN 1 TAB PO SCH (10:09)
[2024-07-21] MEDS: FERROUS SULFATE 325 MG TAB PO SCH (10:09)
[2024-07-21] MEDS: DOCUSATE SODIUM 100 MG CAP PO SCH (10:09)
[2024-07-21] MEDS: IBUPROFEN 600 MG TAB PO PRN (10:09)
[2024-07-21] MEDS: cephALEXin 250 MG CAP PO SCH (10:10)
[2024-07-21] MEDS: BENZOCAINE 20% SPRY 85 APPLN/85 GM CAN EXT PRN (10:11)
[2024-07-21] MEDS: ASCORBIC ACID 500 MG TAB PO SCH (10:24)
[2024-07-21 11:42] VITALS: RESP 18
[2024-07-21] MEDS ORDERED: CALCIUM CARBONATE 500 MG CHEWABLE TAB PO PRN (18:30)
[2024-07-21] MEDS: DIPHTHER/TETAN/PERTUS Vaccine (Tdap, Adol/Adult) 0.5mL IM ONE (19:58)
[2024-07-21] MEDS: BUPIVACAINE 0.25% PF 30 ML VIAL EPI STA (21:01)
[2024-07-21] MEDS: fentaNYL citrate PF 100 MCG/2 ML VIAL EPI STA (21:01)
[2024-07-21] MEDS: SODIUM CHLORIDE 0.9% PF INJ 10 ML VIAL EPI STA (21:02)
[2024-07-21] MEDS: LIDOCAINE 2%/EPINEPHRINE 1:200,000 20 ML PF EPI STA (21:02)
[2024-07-22 06:38] LABS: Hematocrit (blood only) 29.9 % (37.0-47.0); Hemoglobin 10.1 g/dl (12.0-16.0); Mean Corpuscular Hemoglobin 29.9 pg (25.0-34.0); Mean Corpuscular Hgb Conc 33.8 g/dL (32.0-36.0); Mean Corpuscular Volume 88.5 fL (80.0-100.0); Mean Platelet Volume 9.6 fL (9.4-12.4); Platelet Count 340 K/uL (130-400); RDW Standard Deviation 41.7 fL (36.4-46.3); Red Blood Count 3.38 M/uL (4.20-5.40); White Blood Count 13.65 K/ul (4.8-10.8)
[2024-07-22 09:15] VITALS: BP 121/75; PULSE 91; TEMP 98.1; O2SAT 93
--- NOTE | 2024-07-22 10:32 | Obstetrical Progress Note ---
Date of Service July 22, 2024 Assessment & Plan Admission and Anticipated Discharge Date Admission Date: July 20, 2024 OB Progress Note abdomen soft and non tender ambulating well no calf tenderness both legs greatly improved decreased redness decreased swelling vaginal bleeding scant hgb 10.1 Results & Data Vital Signs (Past 12 Hours) Vital Signs Temp Pulse Resp BP Pulse Ox O2 Del Method 07/22/24 07:57 Room Air 07/22/24 07:57 36.7 C 91 H 18 121/75 93 Room Air 07/22/24 00:30 36.5 C 89 18 117/67 98 Room Air
[2024-07-22] MEDS ORDERED: bisacodyL 5 MG TABEC PO SCH (20:00)
[2024-07-23] MEDS ORDERED: bisacodyL 10 MG SUPP PR PRN
[2024-07-24 15:02] LABS: Amphetamine Urine, Confirm 984 ng/mL (<250); Methamphetamine, Ur Confirm 3220 ng/mL (<250)
== END 2024-07-22 12:00 | disposition home or self-care (01) | DRG 806 ==
LOC: OPB 19:03 → 4S1 19:06 → 4E1 07-21 09:16